=== PATIENT | female | born 1940 | race Caucasian/White ===

== ENCOUNTER → 2017-04-06 | Outpatient (REF) | payer BC ==
[2017-04-06 14:42] LABS: FERRITIN 17 NG/ML (8-252); IRON (FE) 43 UG/DL (50-170); PERCENT SATURATION 9.7 % (13.2-45.0); TOTAL IRON BINDING CAPACITY 443 UG/DL (250-450)
[2017-04-06 15:15] LABS: FOLATE 9.5 NG/ML; VITAMIN B12 LEVEL 470 PG/ML
== END ==
LOC: M LAB REF 13:28
DX: D64.9 Anemia, unspecified (principal)

== ENCOUNTER 2017-04-20 10:50 | Outpatient (CLI) | payer BC ==
[2017-04-20] MEDS: IRON SUCROSE 25 MG in NS 50 ML IV (12:49)
[2017-04-20] MEDS: IRON SUCROSE 475 MG in NS 250 ML IV (14:38)
== END 2017-04-20 19:00 | disposition home or self-care (01) ==
LOC: M INFU 10:50 → M PED 19:00 → M INFU 11:23 → M PED 11:23 → M OPCLIPED 10:50 → M PED 11:23 → M INFU 19:00
DX: D50.9 Iron deficiency anemia, unspecified (principal); Z88.0 Allergy status to penicillin; Z88.8 Allergy status to other drugs, medicaments and biological substances
CPT/HCPCS: J1756

== ENCOUNTER → 2017-09-06 | Outpatient (REF) | payer BC | LOC: M LAB REF 09-07 12:49 | DX: D50.9 Iron deficiency anemia, unspecified (principal) | CPT/HCPCS: 82270 ==

== ENCOUNTER 2017-10-27 11:51 | Inpatient (IN) | payer MEDICARE, BC ==
[2017-10-27 12:37] LABS: BASO % 0.4 % (0.0-1.0); EOS # 0.1 10^3/uL (0.0-0.50); EOS % 1.3 % (0.0-3.0); HEMATOCRIT 19.2 % (36.0-47.0); IMMATURE GRANULOCYTE % 0.6 % (0-3.0); LYMPH # 1.5 10^3/uL (1.5-4.5); LYMPH % 27.4 % (24.0-44.0); MEAN CORPUSCULAR HEMOGLOBIN 21.4 pg (27.0-33.0); MEAN CORPUSCULAR HGB CONC 26.6 g/dl (32.0-36.5); MEAN CORPUSCULAR VOLUME 80.7 fl (80.0-96.0); MONO # 0.4 10^3/uL (0.0-0.8); MONO % 6.7 % (0.0-5.0); NEUTROPHILS # 3.4 10^3/uL (1.8-7.7); NEUTROPHILS % 63.6 % (36.0-66.0); PLATELET COUNT, AUTOMATED 113 10^3/uL (150-450); RED BLOOD COUNT 2.38 10^6/uL (4.00-5.40); RED CELL DISTRIBUTION WIDTH 15.4 % (11.5-14.5); WHITE BLOOD COUNT 5.4 10^3/uL (4.0-10.0)
[2017-10-27 12:44] LABS: INR 1.11; PROTHROMBIN TIME 14.5 SECONDS (12.1-14.4)
[2017-10-27 12:45] LABS: HEMOGLOBIN 5.1 g/dl (12.0-15.5); PARTIAL THROMBOPLASTIN TIME 35.3 SECONDS (25.4-37.6)
[2017-10-27] MEDS: NS 1,000 ML IV ×2 (13:29→16:30)
[2017-10-27 13:41] LABS: ALBUMIN 2.7 GM/DL (3.2-5.2); ALBUMIN/GLOBULIN RATIO 0.66 (1.00-1.93); ALKALINE PHOSPHATASE 161 U/L (45-117); ALT/SGPT 16 U/L (12-78); ANION GAP 11 MEQ/L (8-16); AST/SGOT 39 U/L (7-37); BILIRUBIN,DIRECT 0.2 MG/DL (0.0-0.2); BILIRUBIN,TOTAL 0.7 MG/DL (0.2-1.0); BLOOD UREA NITROGEN 23 MG/DL (7-18); CALCIUM LEVEL 8.1 MG/DL (8.8-10.2); CARBON DIOXIDE LEVEL 24 MEQ/L (21-32); CHLORIDE LEVEL 110 MEQ/L (98-107); CREATININE FOR GFR 1.65 MG/DL (0.55-1.30); GLOMERULAR FILTRATION RATE 32.1 (>39); GLUCOSE, FASTING 115 MG/DL (70-100); LIPASE 201 U/L (73-393); POTASSIUM SERUM 4.3 MEQ/L (3.5-5.1); SODIUM LEVEL 145 MEQ/L (136-145); TOTAL PROTEIN 6.8 GM/DL (6.4-8.2)
[2017-10-27] MEDS: diphenhydrAMINE INJ 50MG/ML VIAL (J1200) IV (14:02)
[2017-10-27 14:03] LABS: IMMEDIATE SPIN CROSSMATCH 1 2
[2017-10-27] MEDS: PANTOPRAZOLE 40MG INJ (PROTONIX) (C9113) IV (14:30)
[2017-10-27] MEDS ORDERED: ACETAMINOPHEN 650 MG SUPP PR (16:00)
[2017-10-27] MEDS ORDERED: ONDANSETRON 4MG/2ML VIAL (J2405) IV (16:00)
[2017-10-27] MEDS ORDERED: diazePAM 5 MG TAB PO (16:15)
[2017-10-27] MEDS: PANTOPRAZOLE SODIUM 40 MG in D5W 50 ML IV ×3 (16:59→23:39)
[2017-10-27 18:34] LABS: BEDSIDE GLUCOSE 50 MG/DL (83-110)
[2017-10-27] MEDS: HumaLOG INSULIN (NovoLOG) PER UNIT SC ×2 (18:40→23:38)
[2017-10-27] MEDS ORDERED: DEXTROSE 50% 50 ML SYRINGE As Ordered (18:50)
[2017-10-27] MEDS: DEXTROSE 50% 50 ML SYRINGE IV (18:53)
[2017-10-27 19:34] LABS: BEDSIDE GLUCOSE 153 MG/DL (83-110)
[2017-10-27 20:20] LABS: BEDSIDE GLUCOSE 116 MG/DL (83-110)
[2017-10-27 20:24] LABS: HEMATOCRIT 21.9 % (36.0-47.0)
[2017-10-27 20:35] LABS: HEMOGLOBIN 6.3 g/dl (12.0-15.5)
[2017-10-27] MEDS: D5W 1,000 ML IV (20:40)
[2017-10-27] MEDS ORDERED: LEVEMIR (INSULIN DETEMIR) 1 UNITS/0.01ML SC ×2 (21:00)
[2017-10-27 21:12] LABS: IMMEDIATE SPIN CROSSMATCH 1 1
[2017-10-27] MEDS: CARVedilol 3.125 MG TAB PO (21:13)
[2017-10-27] MEDS ORDERED: INFLUENZA VIRUS VACCINE HIGH DOSE 0.5 ML SYRINGE (90662) IM (21:15)
[2017-10-27 22:56] LABS: IMMEDIATE SPIN CROSSMATCH 1 1
[2017-10-27 23:27] LABS: BEDSIDE GLUCOSE 73 MG/DL (83-110)
[2017-10-27] MEDS ORDERED: GLUCOSE 4 GM CHEW TABLET PO (23:45)
[2017-10-27] MEDS ORDERED: DEXTROSE 50% 50 ML SYRINGE IV (23:45)
[2017-10-27] MEDS ORDERED: GLUCAGON FOR INJ 1 MG VIAL (J1610) SC (23:45)
[2017-10-28 01:20] LABS: HEMATOCRIT 29.1 % (36.0-47.0)
[2017-10-28 01:21] LABS: HEMOGLOBIN 8.9 g/dl (12.0-15.5)
[2017-10-28 02:00] LABS: BEDSIDE GLUCOSE 76 MG/DL (83-110)
[2017-10-28 03:32] LABS: BEDSIDE GLUCOSE 89 MG/DL (83-110)
[2017-10-28 04:30] LABS: HEMATOCRIT 28.9 % (36.0-47.0); HEMOGLOBIN 8.9 g/dl (12.0-15.5); MEAN CORPUSCULAR HEMOGLOBIN 24.9 pg (27.0-33.0); MEAN CORPUSCULAR HGB CONC 30.8 g/dl (32.0-36.5); MEAN CORPUSCULAR VOLUME 80.7 fl (80.0-96.0); RED BLOOD COUNT 3.58 10^6/uL (4.00-5.40); RED CELL DISTRIBUTION WIDTH 15.6 % (11.5-14.5); WHITE BLOOD COUNT 5.7 10^3/uL (4.0-10.0)
[2017-10-28 04:44] LABS: ANION GAP 9 MEQ/L (8-16); BLOOD UREA NITROGEN 18 MG/DL (7-18); CALCIUM LEVEL 7.6 MG/DL (8.8-10.2); CARBON DIOXIDE LEVEL 24 MEQ/L (21-32); CHLORIDE LEVEL 110 MEQ/L (98-107); CREATININE FOR GFR 1.44 MG/DL (0.55-1.30); GLOMERULAR FILTRATION RATE 37.6 (>39); GLUCOSE, FASTING 86 MG/DL (70-100); MAGNESIUM LEVEL 2.2 MG/DL (1.8-2.4); POTASSIUM SERUM 3.8 MEQ/L (3.5-5.1); SODIUM LEVEL 143 MEQ/L (136-145)
[2017-10-28] MEDS: LEVOTHYROXINE 25MCG TABLET (0.025MG) PO (05:07)
[2017-10-28] MEDS: HumaLOG INSULIN (NovoLOG) PER UNIT SC ×4 (05:08→23:50)
[2017-10-28] MEDS: ACETAMINOPHEN TAB 650MG DOSE (2X325MG) PO (05:08)
[2017-10-28] MEDS: PANTOPRAZOLE SODIUM 40 MG in D5W 50 ML IV ×4 (05:08→23:16)
[2017-10-28 05:11] LABS: PLATELET COUNT, AUTOMATED 77 10^3/uL (150-450)
[2017-10-28 05:12] LABS: IMMATURE PLATELET FRACTION % 4.8 % (0.0-9.6)
[2017-10-28] MEDS ORDERED: LIDOCAINE 2% INJ 100 MG/5 ML SDV (FOR ANES.) As Ordered (07:46)
[2017-10-28] MEDS ORDERED: PROPOFOL 200 MG/20 ML VIAL As Ordered ×2 (07:46→07:47)
[2017-10-28 07:51] LABS: BEDSIDE GLUCOSE 128 MG/DL (83-110)
[2017-10-28] MEDS ORDERED: ACETAMINOPHEN 500 MG TAB PO (09:00)
[2017-10-28] MEDS: GOLYTELY SOLN 4000 ML BTL PO (10:09)
[2017-10-28] MEDS: VITAMIN D 1,000 INTERNATIONAL UNITS TABLET PO (10:09)
[2017-10-28] MEDS: CARVedilol 3.125 MG TAB PO ×2 (10:10→20:36)
[2017-10-28] MEDS: glipiZIDE (GLUCOTROL) 5 MG TAB PO (10:11)
[2017-10-28] MEDS: ROSUVASTATIN 10 MG TAB (CRESTOR) PO (10:11)
[2017-10-28] MEDS: ESCITALOPRAM OXALATE 10 MG TAB (LEXAPRO) PO (10:11)
[2017-10-28 11:58] LABS: BEDSIDE GLUCOSE 216 MG/DL (83-110)
[2017-10-28] MEDS: NS 1,000 ML IV (12:00)
[2017-10-28] MEDS: D5W 1,000 ML IV (12:15)
[2017-10-28 12:23] LABS: HEMATOCRIT 30.5 % (36.0-47.0); HEMOGLOBIN 9.4 g/dl (12.0-15.5)
[2017-10-28 18:02] LABS: BEDSIDE GLUCOSE 219 MG/DL (83-110)
[2017-10-28 18:02] LABS: HEMATOCRIT 30.7 % (36.0-47.0); HEMOGLOBIN 9.3 g/dl (12.0-15.5)
[2017-10-28 23:45] LABS: BEDSIDE GLUCOSE 232 MG/DL (83-110)
[2017-10-29 00:43] LABS: HEMATOCRIT 32.2 % (36.0-47.0); HEMOGLOBIN 9.6 g/dl (12.0-15.5)
[2017-10-29] MEDS: D5W 1,000 ML IV (04:22)
[2017-10-29] MEDS: PANTOPRAZOLE SODIUM 40 MG in D5W 50 ML IV ×3 (04:22→08:30)
[2017-10-29 05:38] LABS: HEMATOCRIT 28.1 % (36.0-47.0); HEMOGLOBIN 8.5 g/dl (12.0-15.5); MEAN CORPUSCULAR HEMOGLOBIN 24.3 pg (27.0-33.0); MEAN CORPUSCULAR HGB CONC 30.2 g/dl (32.0-36.5); MEAN CORPUSCULAR VOLUME 80.3 fl (80.0-96.0); RED CELL DISTRIBUTION WIDTH 16.4 % (11.5-14.5); WHITE BLOOD COUNT 5.4 10^3/uL (4.0-10.0)
[2017-10-29 05:40] LABS: PLATELET COUNT, AUTOMATED 88 10^3/uL (150-450)
[2017-10-29 05:41] LABS: IMMATURE PLATELET FRACTION % 6.2 % (0.0-9.6)
[2017-10-29] MEDS: HumaLOG INSULIN (NovoLOG) PER UNIT SC ×3 (06:00→20:30)
[2017-10-29] MEDS: LEVOTHYROXINE 25MCG TABLET (0.025MG) PO (06:00)
[2017-10-29 06:18] LABS: ALBUMIN 2.6 GM/DL (3.2-5.2); ALBUMIN/GLOBULIN RATIO 0.68 (1.00-1.93); ALKALINE PHOSPHATASE 140 U/L (45-117); ALT/SGPT 14 U/L (12-78); ANION GAP 6 MEQ/L (8-16); AST/SGOT 37 U/L (7-37); BLOOD UREA NITROGEN 11 MG/DL (7-18); CALCIUM LEVEL 7.8 MG/DL (8.8-10.2); CARBON DIOXIDE LEVEL 28 MEQ/L (21-32); CHLORIDE LEVEL 108 MEQ/L (98-107); CREATININE FOR GFR 1.44 MG/DL (0.55-1.30); GLOMERULAR FILTRATION RATE 37.6 (>39); GLUCOSE, FASTING 129 MG/DL (70-100); MAGNESIUM LEVEL 1.9 MG/DL (1.8-2.4); POTASSIUM SERUM 3.9 MEQ/L (3.5-5.1); SODIUM LEVEL 142 MEQ/L (136-145); TOTAL PROTEIN 6.4 GM/DL (6.4-8.2)
[2017-10-29] MEDS: ROSUVASTATIN 10 MG TAB (CRESTOR) PO (08:04)
[2017-10-29] MEDS: VITAMIN D 1,000 INTERNATIONAL UNITS TABLET PO (08:04)
[2017-10-29] MEDS: ESCITALOPRAM OXALATE 10 MG TAB (LEXAPRO) PO (08:04)
[2017-10-29] MEDS: CARVedilol 3.125 MG TAB PO ×2 (08:20→20:29)
[2017-10-29] MEDS ORDERED: PROPOFOL 200 MG/20 ML VIAL As Ordered (11:57)
[2017-10-29] MEDS ORDERED: ONDANSETRON 4MG/2ML VIAL (J2405) IV (12:45)
[2017-10-29] MEDS: LR 1,000 ML IV (12:45)
[2017-10-29 13:22] LABS: HEMOGLOBIN 8.9 g/dl (12.0-15.5)
[2017-10-29 14:25] LABS: BEDSIDE GLUCOSE 191 MG/DL (83-110)
[2017-10-29 18:46] LABS: BEDSIDE GLUCOSE 97 MG/DL (83-110)
[2017-10-30] LABS: BEDSIDE GLUCOSE 165 MG/DL (83-110)
[2017-10-30] MEDS: HumaLOG INSULIN (NovoLOG) PER UNIT SC ×3 (00:15→13:03)
[2017-10-30] MEDS: ACETAMINOPHEN TAB 650MG DOSE (2X325MG) PO (00:15)
[2017-10-30] MEDS: LEVOTHYROXINE 25MCG TABLET (0.025MG) PO (05:20)
[2017-10-30 05:24] LABS: BEDSIDE GLUCOSE 93 MG/DL (83-110)
[2017-10-30 06:59] LABS: HEMATOCRIT 28.1 % (36.0-47.0); HEMOGLOBIN 8.2 g/dl (12.0-15.5); MEAN CORPUSCULAR HEMOGLOBIN 24.3 pg (27.0-33.0); MEAN CORPUSCULAR HGB CONC 29.2 g/dl (32.0-36.5); MEAN CORPUSCULAR VOLUME 83.1 fl (80.0-96.0); RED BLOOD COUNT 3.38 10^6/uL (4.00-5.40); RED CELL DISTRIBUTION WIDTH 17.1 % (11.5-14.5); WHITE BLOOD COUNT 4.8 10^3/uL (4.0-10.0)
[2017-10-30 07:05] LABS: PLATELET COUNT, AUTOMATED 76 10^3/uL (150-450)
[2017-10-30 07:06] LABS: IMMATURE PLATELET FRACTION % 5.6 % (0.0-9.6)
[2017-10-30 07:26] LABS: ALBUMIN 2.6 GM/DL (3.2-5.2); ALBUMIN/GLOBULIN RATIO 0.72 (1.00-1.93); ALKALINE PHOSPHATASE 144 U/L (45-117); ALT/SGPT 14 U/L (12-78); ANION GAP 7 MEQ/L (8-16); AST/SGOT 34 U/L (7-37); BILIRUBIN,TOTAL 1.6 MG/DL (0.2-1.0); BLOOD UREA NITROGEN 12 MG/DL (7-18); CALCIUM LEVEL 8.2 MG/DL (8.8-10.2); CARBON DIOXIDE LEVEL 27 MEQ/L (21-32); CHLORIDE LEVEL 111 MEQ/L (98-107); CREATININE FOR GFR 1.49 MG/DL (0.55-1.30); GLOMERULAR FILTRATION RATE 36.1 (>39); GLUCOSE, FASTING 106 MG/DL (70-100); MAGNESIUM LEVEL 2.3 MG/DL (1.8-2.4); SODIUM LEVEL 145 MEQ/L (136-145); TOTAL PROTEIN 6.2 GM/DL (6.4-8.2)
[2017-10-30] MEDS: CARVedilol 3.125 MG TAB PO (09:06)
[2017-10-30] MEDS: VITAMIN D 1,000 INTERNATIONAL UNITS TABLET PO (09:07)
[2017-10-30] MEDS: ROSUVASTATIN 10 MG TAB (CRESTOR) PO (09:07)
[2017-10-30] MEDS: ESCITALOPRAM OXALATE 10 MG TAB (LEXAPRO) PO (09:07)
[2017-10-30 12:19] LABS: HEMATOCRIT 29.3 % (36.0-47.0); HEMOGLOBIN 8.5 g/dl (12.0-15.5)
[2017-10-30 12:55] LABS: HEPATITIS C VIRUS ABY INDEX 0.1 INDEX (<0.8)
[2017-10-30 12:55] LABS: HEPATITIS A ANTIBODY IGM NEGATIVE (NEGATIVE); HEPATITIS B CORE ANTIBODY IGM NEGATIVE (NEGATIVE); HEPATITIS B SURFACE ANTIGEN NEGATIVE (NEGATIVE)
[2017-11-01 00:07] LABS: ANTINUCLEAR ANTIBODIES DIRECT Negative (Negative)
== END 2017-10-30 17:00 | disposition home or self-care (01) | DRG 812 ==
LOC: M ED 11:51 → M ED INP 16:08 → M MS5PR 10-28 14:53 → M ICU 20:15
PROC: 0DB98ZX Excision of Duodenum, Via Natural or Artificial Opening Endoscopic, Diagnostic (ICD-10-PCS; principal; 2017-10-28 08:00)
PROC: 0DBQ8ZX Excision of Anus, Via Natural or Artificial Opening Endoscopic, Diagnostic (ICD-10-PCS; 2017-10-28 08:39)
PROC: 0DBH8ZX Excision of Cecum, Via Natural or Artificial Opening Endoscopic, Diagnostic (ICD-10-PCS; 2017-10-28 08:39)
PROC: 0W3P8ZZ Control Bleeding in Gastrointestinal Tract, Via Natural or Artificial Opening Endoscopic (ICD-10-PCS; 2017-10-28 08:39)
PROC: 30233N1 Transfusion of Nonautologous Red Blood Cells into Peripheral Vein, Percutaneous Approach (ICD-10-PCS; 2017-10-28 08:39)
DX: D64.9 Anemia, unspecified (principal); I50.32 Chronic diastolic (congestive) heart failure; I13.0 Hypertensive heart and chronic kidney disease with heart failure and stage 1 through stage 4 chronic kidney disease, or unspecified chronic kidney disease; K21.9 Gastro-esophageal reflux disease without esophagitis; E11.22 Type 2 diabetes mellitus with diabetic chronic kidney disease; F41.9 Anxiety disorder, unspecified; F32.9 Major depressive disorder, single episode, unspecified; K64.0 First degree hemorrhoids; K57.30 Diverticulosis of large intestine without perforation or abscess without bleeding; K62.0 Anal polyp; D69.6 Thrombocytopenia, unspecified; R16.2 Hepatomegaly with splenomegaly, not elsewhere classified; K74.60 Unspecified cirrhosis of liver; D12.0 Benign neoplasm of cecum; E03.9 Hypothyroidism, unspecified; Z79.4 Long term (current) use of insulin; Z88.0 Allergy status to penicillin; Z88.1 Allergy status to other antibiotic agents; Z79.899 Other long term (current) drug therapy

== ENCOUNTER → 2017-10-27 | Outpatient (REF) | payer BC, MEDICARE ==
[2017-10-27 14:42] LABS: FERRITIN 8 NG/ML (8-252); IRON (FE) 209 UG/DL (50-170); PERCENT SATURATION 43.5 % (13.2-45.0); TOTAL IRON BINDING CAPACITY 480 UG/DL (250-450)
== END ==
LOC: M LAB REF 13:52
DX: D50.9 Iron deficiency anemia, unspecified (principal)

== ENCOUNTER 2017-11-16 13:30 | Outpatient (CLI) | payer MEDICARE, BC ==
[2017-11-16] MEDS: ACETAMINOPHEN TAB 650MG DOSE (2X325MG) PO ×2 (14:14)
[2017-11-16] MEDS: diphenhydrAMINE 25 MG CAP PO ×2 (14:16)
== END 2017-11-16 18:35 | disposition home or self-care (01) ==
LOC: M INFU 13:30
DX: D61.818 Other pancytopenia (principal)
CPT/HCPCS: 36430

== ENCOUNTER 2017-11-22 16:57 | Outpatient (CLI) | payer MEDICARE, BC ==
[2017-11-22] MEDS: diphenhydrAMINE 50 MG CAP PO (19:01)
[2017-11-22] MEDS: ACETAMINOPHEN TAB 650MG DOSE (2X325MG) PO (19:01)
[2017-11-22] MEDS: CARVedilol 3.125 MG TAB PO (21:41)
[2017-11-23 03:28] LABS: BEDSIDE GLUCOSE 107 MG/DL (83-110)
== END 2017-11-23 00:40 | disposition home or self-care (01) ==
LOC: M OPCLI5PR 11-23 00:40 → M MS5PR 17:34
DX: D61.818 Other pancytopenia (principal); D69.6 Thrombocytopenia, unspecified; R16.1 Splenomegaly, not elsewhere classified
CPT/HCPCS: 36430

== ENCOUNTER → 2017-12-04 | Outpatient (REF) | payer MEDICARE, BC ==
[2017-12-05 12:13] LABS: IMMEDIATE SPIN CROSSMATCH 1 1
== END ==
LOC: M LAB REF 17:21
DX: D64.9 Anemia, unspecified (principal)
CPT/HCPCS: 86900

== ENCOUNTER 2017-12-05 11:37 | Outpatient (CLI) | payer MEDICARE, BC ==
[2017-12-05] MEDS: diphenhydrAMINE 25 MG CAP PO (12:00)
== END 2017-12-05 14:35 | disposition home or self-care (01) ==
LOC: M INFU 11:37
DX: D64.9 Anemia, unspecified (principal); N18.3 Chronic kidney disease, stage 3 (moderate); E11.22 Type 2 diabetes mellitus with diabetic chronic kidney disease; I12.9 Hypertensive chronic kidney disease with stage 1 through stage 4 chronic kidney disease, or unspecified chronic kidney disease; E83.51 Hypocalcemia; Z79.4 Long term (current) use of insulin; Z79.899 Other long term (current) drug therapy; Z88.0 Allergy status to penicillin; Z88.2 Allergy status to sulfonamides; Z88.8 Allergy status to other drugs, medicaments and biological substances
CPT/HCPCS: 36430

== ENCOUNTER 2017-12-14 12:15 | Outpatient (CLI) | payer MEDICARE, BC ==
[2017-12-14] MEDS: diphenhydrAMINE 25 MG CAP PO (07:00)
[2017-12-14] MEDS: ACETAMINOPHEN TAB 650MG DOSE (2X325MG) PO (13:37)
[2017-12-14 16:15] LABS: IMMEDIATE SPIN CROSSMATCH 1 2
== END 2017-12-14 18:25 | disposition home or self-care (01) ==
LOC: M INFU 12:15
DX: D46.4 Refractory anemia, unspecified (principal); Z88.0 Allergy status to penicillin; Z88.8 Allergy status to other drugs, medicaments and biological substances
CPT/HCPCS: 36430

== ENCOUNTER 2018-01-05 12:09 | Observation (INO) | payer MEDICARE ==
[2018-01-05] MEDS ORDERED: DEXTROSE 50% 50 ML SYRINGE As Ordered (14:02)
[2018-01-05 14:03] LABS: BEDSIDE GLUCOSE 26 MG/DL (83-110)
[2018-01-05 14:05] LABS: BASO % 0.1 % (0.0-1.0); EOS # 0.1 10^3/uL (0.0-0.50); EOS % 0.9 % (0.0-3.0); HEMATOCRIT 21.5 % (36.0-47.0); IMMATURE GRANULOCYTE % 0.9 % (0-3.0); LYMPH # 1.8 10^3/uL (1.5-4.5); LYMPH % 16.3 % (24.0-44.0); MEAN CORPUSCULAR HEMOGLOBIN 25.1 pg (27.0-33.0); MEAN CORPUSCULAR HGB CONC 28.8 g/dl (32.0-36.5); MONO # 0.8 10^3/uL (0.0-0.8); MONO % 7.3 % (0.0-5.0); NEUTROPHILS # 8.3 10^3/uL (1.8-7.7); NEUTROPHILS % 74.5 % (36.0-66.0); PLATELET COUNT, AUTOMATED 119 10^3/uL (150-450); RED BLOOD COUNT 2.47 10^6/uL (4.00-5.40); RED CELL DISTRIBUTION WIDTH 17.8 % (11.5-14.5); WHITE BLOOD COUNT 11.1 10^3/uL (4.0-10.0)
[2018-01-05 14:09] LABS: HEMOGLOBIN 6.2 g/dl (12.0-15.5)
[2018-01-05] MEDS: D10W 1,000 ML IV (14:13)
[2018-01-05] MEDS: DEXTROSE 50% 50 ML SYRINGE IV (14:13)
[2018-01-05 14:17] LABS: INR 1.04; PROTHROMBIN TIME 13.7 SECONDS (12.1-14.4)
[2018-01-05 14:18] LABS: PARTIAL THROMBOPLASTIN TIME 29.5 SECONDS (25.4-37.6)
[2018-01-05 14:40] LABS: ALBUMIN 2.6 GM/DL (3.2-5.2); ALBUMIN/GLOBULIN RATIO 0.87 (1.00-1.93); ALKALINE PHOSPHATASE 160 U/L (45-117); ALT/SGPT 27 U/L (12-78); ANION GAP 9 MEQ/L (8-16); AST/SGOT 28 U/L (7-37); BILIRUBIN,DIRECT 0.2 MG/DL (0.0-0.2); BILIRUBIN,TOTAL 0.6 MG/DL (0.2-1.0); BLOOD UREA NITROGEN 29 MG/DL (7-18); CALCIUM LEVEL 8.2 MG/DL (8.8-10.2); CARBON DIOXIDE LEVEL 26 MEQ/L (21-32); CHLORIDE LEVEL 114 MEQ/L (98-107); CREATININE FOR GFR 1.35 MG/DL (0.55-1.30); GLOMERULAR FILTRATION RATE 40.4 (>39); GLUCOSE, FASTING 38 MG/DL (70-100); LIPASE 352 U/L (73-393); POTASSIUM SERUM 3.3 MEQ/L (3.5-5.1); SODIUM LEVEL 149 MEQ/L (136-145); TOTAL PROTEIN 5.6 GM/DL (6.4-8.2)
[2018-01-05] MEDS ORDERED: diazePAM 5 MG TAB PO (14:45)
[2018-01-05 15:01] LABS: BEDSIDE GLUCOSE 204 MG/DL (83-110)
[2018-01-05 15:02] LABS: BEDSIDE GLUCOSE 128 MG/DL (83-110)
[2018-01-05 15:36] LABS: IMMEDIATE SPIN CROSSMATCH 1 1
[2018-01-05 16:17] LABS: BEDSIDE GLUCOSE 74 MG/DL (83-110)
[2018-01-05] MEDS ORDERED: DEXTROSE 50% 50 ML SYRINGE IV (17:30)
[2018-01-05] MEDS ORDERED: GLUCAGON FOR INJ 1 MG VIAL (J1610) SC (17:30)
[2018-01-05] MEDS ORDERED: GLUCOSE 4 GM CHEW TABLET PO (17:30)
[2018-01-05 17:38] LABS: BEDSIDE GLUCOSE 155 MG/DL (83-110)
[2018-01-05] MEDS: glipiZIDE (GLUCOTROL) 5 MG TAB PO (18:00)
[2018-01-05] MEDS: ACETAMINOPHEN 500 MG TAB PO (21:20)
[2018-01-05] MEDS: CARVedilol 3.125 MG TAB PO (21:20)
[2018-01-05] MEDS: FERROUS GLUCONATE 324 MG TAB PO (21:20)
[2018-01-05] MEDS: TRIAMCINOLONE ACET 0.1% CREAM 80 GM TOP (21:21)
[2018-01-05 21:23] LABS: BEDSIDE GLUCOSE 90 MG/DL (83-110)
[2018-01-05] MEDS: LEVEMIR (INSULIN DETEMIR) 1 UNITS/0.01ML SC (21:30)
[2018-01-05] MEDS: NovoLOG MIX 70/30 PER UNIT SC (21:31)
[2018-01-06 00:13] LABS: BEDSIDE GLUCOSE 120 MG/DL (83-110)
[2018-01-06] MEDS: NovoLOG MIX 70/30 PER UNIT SC ×2 (06:00→13:20)
[2018-01-06 06:48] LABS: ALBUMIN 2.1 GM/DL (3.2-5.2); ALBUMIN/GLOBULIN RATIO 0.75 (1.00-1.93); ALKALINE PHOSPHATASE 131 U/L (45-117); ALT/SGPT 19 U/L (12-78); ANION GAP 9 MEQ/L (8-16); AST/SGOT 24 U/L (7-37); BILIRUBIN,TOTAL 0.6 MG/DL (0.2-1.0); BLOOD UREA NITROGEN 27 MG/DL (7-18); CALCIUM LEVEL 7.7 MG/DL (8.8-10.2); CARBON DIOXIDE LEVEL 25 MEQ/L (21-32); CHLORIDE LEVEL 113 MEQ/L (98-107); CREATININE FOR GFR 1.34 MG/DL (0.55-1.30); GLOMERULAR FILTRATION RATE 40.7 (>39); GLUCOSE, FASTING 95 MG/DL (70-100); SODIUM LEVEL 147 MEQ/L (136-145); TOTAL PROTEIN 4.9 GM/DL (6.4-8.2)
[2018-01-06] MEDS: LEVOTHYROXINE 25MCG TABLET (0.025MG) PO (07:02)
[2018-01-06] MEDS: LEVEMIR (INSULIN DETEMIR) 1 UNITS/0.01ML SC (08:30)
[2018-01-06] MEDS: CARVedilol 3.125 MG TAB PO ×2 (08:30→20:24)
[2018-01-06] MEDS: VITAMIN D 1,000 INTERNATIONAL UNITS TABLET PO (08:31)
[2018-01-06] MEDS: FERROUS GLUCONATE 324 MG TAB PO ×2 (08:31→20:24)
[2018-01-06] MEDS: ESCITALOPRAM OXALATE 10 MG TAB (LEXAPRO) PO (08:31)
[2018-01-06] MEDS: TRIAMCINOLONE ACET 0.1% CREAM 80 GM TOP ×2 (08:32→20:24)
[2018-01-06] MEDS: D10W 1,000 ML IV ×2 (09:13→13:20)
[2018-01-06 09:23] LABS: FERRITIN 47 NG/ML (8-252); IRON (FE) 23 UG/DL (50-170); PERCENT SATURATION 5.9 % (13.2-45.0); TOTAL IRON BINDING CAPACITY 393 UG/DL (250-450)
[2018-01-06 09:26] LABS: HEMATOCRIT 24.5 % (36.0-47.0); HEMOGLOBIN 7.5 g/dl (12.0-15.5); MEAN CORPUSCULAR HEMOGLOBIN 26.4 pg (27.0-33.0); MEAN CORPUSCULAR HGB CONC 30.6 g/dl (32.0-36.5); MEAN CORPUSCULAR VOLUME 86.3 fl (80.0-96.0); RED BLOOD COUNT 2.84 10^6/uL (4.00-5.40); RED CELL DISTRIBUTION WIDTH 18.3 % (11.5-14.5); RETIC HEMOGLOBIN EQUIVALENT 25.5 pg (24-36); RETICULOCYTE # 133.8 10^9/L (17-77); RETICULOCYTE % 4.7 % (0.5-1.5); WHITE BLOOD COUNT 6.8 10^3/uL (4.0-10.0)
[2018-01-06 10:09] LABS: PLATELET COUNT, AUTOMATED 89 10^3/uL (150-450)
[2018-01-06 10:10] LABS: IMMATURE PLATELET FRACTION % 2.2 % (0.0-9.6)
[2018-01-06 11:41] LABS: BEDSIDE GLUCOSE 167 MG/DL (83-110)
[2018-01-06 16:37] LABS: HEMATOCRIT 25.7 % (36.0-47.0); HEMOGLOBIN 7.6 g/dl (12.0-15.5); MEAN CORPUSCULAR HEMOGLOBIN 25.9 pg (27.0-33.0); MEAN CORPUSCULAR HGB CONC 29.6 g/dl (32.0-36.5); MEAN CORPUSCULAR VOLUME 87.4 fl (80.0-96.0); RED BLOOD COUNT 2.94 10^6/uL (4.00-5.40); RED CELL DISTRIBUTION WIDTH 17.5 % (11.5-14.5); WHITE BLOOD COUNT 6.4 10^3/uL (4.0-10.0)
[2018-01-06 16:42] LABS: PLATELET COUNT, AUTOMATED 73 10^3/uL (150-450)
[2018-01-06 17:11] LABS: BEDSIDE GLUCOSE 76 MG/DL (83-110)
[2018-01-06 19:59] LABS: BEDSIDE GLUCOSE 80 MG/DL (83-110)
[2018-01-06 20:32] LABS: IMMEDIATE SPIN CROSSMATCH 1 2
[2018-01-07 00:12] LABS: HEMOGLOBIN 8.5 g/dl (12.0-15.5); MEAN CORPUSCULAR HEMOGLOBIN 26.4 pg (27.0-33.0); MEAN CORPUSCULAR HGB CONC 30.4 g/dl (32.0-36.5); RED BLOOD COUNT 3.22 10^6/uL (4.00-5.40); RED CELL DISTRIBUTION WIDTH 17.3 % (11.5-14.5); WHITE BLOOD COUNT 6.5 10^3/uL (4.0-10.0)
[2018-01-07 00:13] LABS: PLATELET COUNT, AUTOMATED 80 10^3/uL (150-450)
[2018-01-07 00:19] LABS: BEDSIDE GLUCOSE 88 MG/DL (83-110)
[2018-01-07 00:37] LABS: BEDSIDE GLUCOSE 110 MG/DL (83-110)
[2018-01-07] MEDS: LEVOTHYROXINE 25MCG TABLET (0.025MG) PO (05:56)
[2018-01-07 06:22] LABS: BEDSIDE GLUCOSE 94 MG/DL (83-110)
[2018-01-07 08:06] LABS: HAPTOGLOBIN 137 mg/dL (34-200)
[2018-01-07] MEDS: ESCITALOPRAM OXALATE 10 MG TAB (LEXAPRO) PO (08:18)
[2018-01-07] MEDS: VITAMIN D 1,000 INTERNATIONAL UNITS TABLET PO (08:18)
[2018-01-07] MEDS: FERROUS GLUCONATE 324 MG TAB PO (08:19)
[2018-01-07] MEDS: CARVedilol 3.125 MG TAB PO (08:19)
[2018-01-07] MEDS: TRIAMCINOLONE ACET 0.1% CREAM 80 GM TOP (08:19)
[2018-01-07] MEDS: LEVEMIR (INSULIN DETEMIR) 1 UNITS/0.01ML SC (08:20)
[2018-01-07 08:26] LABS: ANION GAP 6 MEQ/L (8-16); BLOOD UREA NITROGEN 21 MG/DL (7-18); CALCIUM LEVEL 8.1 MG/DL (8.8-10.2); CARBON DIOXIDE LEVEL 28 MEQ/L (21-32); CHLORIDE LEVEL 110 MEQ/L (98-107); CREATININE FOR GFR 1.31 MG/DL (0.55-1.30); GLOMERULAR FILTRATION RATE 41.8 (>39); GLUCOSE, FASTING 115 MG/DL (70-100); POTASSIUM SERUM 4.1 MEQ/L (3.5-5.1); SODIUM LEVEL 144 MEQ/L (136-145)
[2018-01-07 11:46] LABS: BEDSIDE GLUCOSE 174 MG/DL (83-110)
[2018-01-07] MEDS: FUROSEMIDE 40 MG/4 ML VIAL (J1940) IV (12:17)
[2018-01-08 11:56] LABS: VITAMIN B12 LEVEL 624 PG/ML (247-911)
[2018-01-08 11:59] LABS: FOLATE 14.3 NG/ML (>5.4)
== END 2018-01-07 15:15 | disposition home or self-care (01) ==
LOC: M ED 12:09 → M ED INP 14:06 → M MS5PR 17:45
DX: D50.0 Iron deficiency anemia secondary to blood loss (chronic) (principal); D63.8 Anemia in other chronic diseases classified elsewhere; I12.9 Hypertensive chronic kidney disease with stage 1 through stage 4 chronic kidney disease, or unspecified chronic kidney disease; N18.3 Chronic kidney disease, stage 3 (moderate); E11.9 Type 2 diabetes mellitus without complications; I50.30 Unspecified diastolic (congestive) heart failure; D35.00 Benign neoplasm of unspecified adrenal gland; K21.9 Gastro-esophageal reflux disease without esophagitis; Z79.4 Long term (current) use of insulin; Z79.899 Other long term (current) drug therapy; Z88.0 Allergy status to penicillin; Z88.2 Allergy status to sulfonamides; F41.9 Anxiety disorder, unspecified; E03.9 Hypothyroidism, unspecified
CPT/HCPCS: J1940

== ENCOUNTER → 2018-01-10 | Outpatient (CLI) | payer MEDICARE | LOC: M RAD 10:57 | DX: R16.1 Splenomegaly, not elsewhere classified (principal); K86.2 Cyst of pancreas; E27.9 Disorder of adrenal gland, unspecified | CPT/HCPCS: 74181 ==

== ENCOUNTER → 2018-03-15 | Outpatient (CLI) | payer MEDICARE ==
[~2018-03-15] MED LIST: CALC600T60 PO; CORE3.12 PO; CRES5TAB PO; DECA4TAB PO; DEXA4TA PO; ESOM1CAP5 PO; FENO145T13 PO; FERR32TA PO; FLUTISP; GLIP5TAB8 PO; HYDR-643 PO; INSUDET SC; LEVE1INJ5 SC; LEXA1TAB PO; NEXI1CAP4 PO; NOVOINJ2 SC; PYRI25TA4 PO; SYNT25TA PO; TRIA1CR80 TOP; TYLE500T78 PO; VALI5TAB PO; VITA-182 PO; VITA500T PO; VITATAB11 PO
[2018-03-15 11:23] LABS: BASO % 0.5 % (0.0-1.0); EOS # 0.1 10^3/uL (0.0-0.50); EOS % 1.4 % (0.0-3.0); HEMATOCRIT 32.1 % (36.0-47.0); HEMOGLOBIN 9.5 g/dl (12.0-15.5); LYMPH # 1.1 10^3/uL (1.5-4.5); LYMPH % 19.3 % (24.0-44.0); MEAN CORPUSCULAR HGB CONC 29.6 g/dl (32.0-36.5); MEAN CORPUSCULAR VOLUME 84.5 fl (80.0-96.0); MONO # 0.4 10^3/uL (0.0-0.8); MONO % 6.8 % (0.0-5.0); NEUTROPHILS % 71.6 % (36.0-66.0); WHITE BLOOD COUNT 5.6 10^3/uL (4.0-10.0)
[2018-03-15 11:59] LABS: CREATININE FOR GFR 1.2 MG/DL (0.55-1.30); GLOMERULAR FILTRATION RATE 46.3 (>39); PERCENT SATURATION 5.2 % (13.2-45.0)
[2018-03-15 12:06] LABS: PLATELET COUNT, AUTOMATED 67 10^3/uL (150-450)
== END ==
LOC: M LAB 10:33
PROVIDERS: ATTEND Internal Medicine Gastroenterology
DX: K62.5 Hemorrhage of anus and rectum (principal); D50.9 Iron deficiency anemia, unspecified

== ENCOUNTER 2018-03-20 06:34 | Day surgery (SDC) | payer MEDICARE ==
[~2018-03-20] VITALS: Ht 162.6 cm; Wt 64.0 kg
[~2018-03-20 06:34] MED LIST changes: +NS 1,000 ML IV ONE
[2018-03-20] MEDS ORDERED: PROPOFOL 500 MG/50 ML VIAL As Ordered ONE (07:06)
[2018-03-20] MEDS ORDERED: LIDOCAINE 2% INJ 100 MG/5 ML SDV (FOR ANES.) As Ordered ONE (07:07)
[2018-03-20] MEDS ORDERED: PROPOFOL 200 MG/20 ML VIAL As Ordered ONE ×2 (09:14→09:37)
--- NOTE | 2018-03-20 09:52 | ROOR ---
Patient Name: Indigo Herr Procedure Date: 03/20/2018 8:00 AM Date of : 1940 Age: 77 Room: [facility] Gender: Female Note Status: Finalized Procedure: Small bowel enteroscopy Indications: Hematochezia Providers: Edgar Guillen MD Referring MD: LUBNA MONTES DO Requesting Provider: Medicines: Monitored Anesthesia Care Complications: No immediate complications. Procedure: Pre-Anesthesia Assessment: - Prior to the procedure, a History and Physical was performed, and patient medications and allergies were reviewed. The patient is competent. The risks and benefits of the procedure and the sedation options and risks were discussed with the patient. All questions were answered and informed consent was obtained. Patient identification and proposed procedure were verified by the physician, the nurse and the anesthesiologist in the procedure room. Mental Status Examination: alert and oriented. Airway Examination: normal oropharyngeal airway and neck mobility. Respiratory Examination: clear to auscultation. CV Examination: normal. Prophylactic Antibiotics: The patient does not require prophylactic antibiotics. Prior Anticoagulants: The patient has taken no previous anticoagulant or antiplatelet agents. ASA Grade Assessment: III - A patient with severe systemic disease. After reviewing the risks and benefits, the patient was deemed in satisfactory condition to undergo the procedure. The anesthesia plan was to use monitored anesthesia care (MAC). Immediately prior to administration of medications, the patient was re-assessed for adequacy to receive sedatives. The heart rate, respiratory rate, oxygen saturations, blood pressure, adequacy of pulmonary ventilation, and response to care were monitored throughout the procedure. The physical status of the patient was re-assessed after the procedure. The upper GI endoscopy was accomplished without difficulty. The patient tolerated the procedure well. The Colonoscope was introduced through the mouth, and advanced to the proximal jejunum. Findings: LA Grade A (one or more mucosal breaks less than 5 mm, not extending between tops of 2 mucosal folds) esophagitis with no bleeding was found in the distal esophagus. Diffuse moderate inflammation characterized by erosions, erythema and granularity was found in the gastric antrum. The duodenal bulb, second portion of the duodenum, third portion of the duodenum and fourth portion of the duodenum were normal. A 10 mm sessile polyp with no bleeding was found in the jejunum. The polyp was removed with a cold biopsy forceps. The polyp was removed with a cold snare. Resection and retrieval were complete. Verification of patient identification for the specimen was done by the physician and nurse using the patient's name, date and medical record number. Estimated blood loss was minimal. The distal extent of the Jejunum examined was tattooed with an injection of 2 mL of Yojana ink. Impression: - LA Grade A reflux esophagitis. - Gastritis. - Normal duodenal bulb, second portion of the duodenum, third portion of the duodenum and fourth portion of the duodenum. - Jejunal polyp(s). Resected and retrieved. - The distal extent of the Jejunum examined was tattooed. Recommendation: - Patient has a contact number available for emergencies. The signs and symptoms of potential delayed complications were discussed with the patient. Return to normal activities tomorrow. Written discharge instructions were provided to the patient. - Full liquid diet today, then advance as tolerated to resume regular diet. - Continue present medications. - Await pathology results. - Perform an upper device-assisted enteroscopy after studies are complete. - Return to GI clinic 1 - 2 weeks. Please call GI clinic @ [phone] for apppointment date and time. - Return to primary care physician. Edgar Guillen MD Edgar Guillen MD 03/20/2018 9:51:52 AM This report has been signed electronically. Number of Addenda: 0 Note Initiated On: 03/20/2018 7:27 AM Estimated Blood Loss: Estimated blood loss was minimal.
--- NOTE | 2018-03-20 09:55 | ROOR ---
Patient Name: Indigo Herr Procedure Date: 03/20/2018 7:29 AM Date of : 1940 Age: 77 Room: [facility] Gender: Female Note Status: Finalized Procedure: Colonoscopy Indications: Hematochezia Providers: Edgar Guillen MD Referring MD: LUBNA MONTES DO Requesting Provider: Medicines: Monitored Anesthesia Care Complications: No immediate complications. Procedure: Pre-Anesthesia Assessment: - Prior to the procedure, a History and Physical was performed, and patient medications and allergies were reviewed. The patient is competent. The risks and benefits of the procedure and the sedation options and risks were discussed with the patient. All questions were answered and informed consent was obtained. Patient identification and proposed procedure were verified by the physician, the nurse and the anesthesiologist in the procedure room. Mental Status Examination: alert and oriented. Airway Examination: normal oropharyngeal airway and neck mobility. Respiratory Examination: clear to auscultation. CV Examination: normal. Prophylactic Antibiotics: The patient does not require prophylactic antibiotics. Prior Anticoagulants: The patient has taken no previous anticoagulant or antiplatelet agents. ASA Grade Assessment: III - A patient with severe systemic disease. After reviewing the risks and benefits, the patient was deemed in satisfactory condition to undergo the procedure. The anesthesia plan was to use monitored anesthesia care (MAC). Immediately prior to administration of medications, the patient was re-assessed for adequacy to receive sedatives. The heart rate, respiratory rate, oxygen saturations, blood pressure, adequacy of pulmonary ventilation, and response to care were monitored throughout the procedure. The physical status of the patient was re-assessed after the procedure. The colonoscopy was performed without difficulty. The patient tolerated the procedure well. The quality of the bowel preparation was good. The terminal ileum, ileocecal valve, appendiceal orifice, and rectum were photographed. The Colonoscope was introduced through the anus and advanced to the terminal ileum, with identification of the appendiceal orifice and IC valve. Scope insertion time was 4 minutes. Scope withdrawal time was 10 minutes. The total duration of the procedure was 14 minutes. Findings: The perianal and digital rectal examinations were normal. The terminal ileum appeared normal. Four sessile polyps were found in the ascending colon. The polyps were 5 to 8 mm in size. These polyps were removed with a cold snare. Resection and retrieval were complete. For hemostasis, two hemostatic clips were successfully placed. There was no bleeding at the end of the procedure. Non-bleeding external and internal hemorrhoids were found during retroflexion. The hemorrhoids were large. Impression: - The examined portion of the ileum was normal. - Four 5 to 8 mm polyps in the ascending colon, removed with a cold snare. Resected and retrieved. Clips were placed. - Non-bleeding external and internal hemorrhoids. Recommendation: - Patient has a contact number available for emergencies. The signs and symptoms of potential delayed complications were discussed with the patient. Return to normal activities tomorrow. Written discharge instructions were provided to the patient. - High fiber diet. - Continue present medications. - Preparation H ointment: Apply externally daily for 5 days. - Repeat colonoscopy in 3 - 5 years for surveillance based on pathology results. - Return to GI office 1 - 2 weeks. Please call GI clinic @ [phone] for apppointment date and time. - Return to primary care physician. Edgar Guillen MD Edgar Guillen MD 03/20/2018 9:54:56 AM This report has been signed electronically. Number of Addenda: 0 Note Initiated On: 03/20/2018 7:29 AM Estimated Blood Loss: Estimated blood loss was minimal.
[2018-03-20 10:10] VITALS: BP 111/64
== END 2018-03-20 10:21 | disposition home or self-care (01) ==
LOC: M OPP 06:34
PROVIDERS: ATTEND Internal Medicine Gastroenterology
DX: K64.8 Other hemorrhoids (principal); D12.2 Benign neoplasm of ascending colon; K92.1 Melena; K21.0 Gastro-esophageal reflux disease with esophagitis; D13.9 Benign neoplasm of ill-defined sites within the digestive system; E10.9 Type 1 diabetes mellitus without complications; N18.4 Chronic kidney disease, stage 4 (severe); Z79.4 Long term (current) use of insulin; Z79.899 Other long term (current) drug therapy; Z88.0 Allergy status to penicillin; Z88.2 Allergy status to sulfonamides; Z88.8 Allergy status to other drugs, medicaments and biological substances; Z80.41 Family history of malignant neoplasm of ovary; Z80.3 Family history of malignant neoplasm of breast; Z80.1 Family history of malignant neoplasm of trachea, bronchus and lung

== ENCOUNTER → 2018-06-21 | Outpatient (REF) | payer MEDICARE ==
[~2018-06-21] MED LIST changes: -NS 1,000 ML IV ONE
[2018-06-21 14:03] LABS: PERCENT SATURATION 4.3 % (13.2-45.0)
== END ==
LOC: M LAB REF 13:37
PROVIDERS: ATTEND Internal Medicine Nephrology
DX: D50.0 Iron deficiency anemia secondary to blood loss (chronic) (principal); N18.3 Chronic kidney disease, stage 3 (moderate)

== ENCOUNTER 2018-06-22 06:46 | Outpatient (CLI) | payer MEDICARE ==
[~2018-06-22] VITALS: Ht 147.3 cm; Wt 65.9 kg
[2018-06-22 06:50] VITALS: BP 170/72
[2018-06-22] MEDS ORDERED: diphenhydrAMINE 25 MG CAP PO ONE (07:15)
[2018-06-22 10:40] VITALS: BP 158/64
== END 2018-06-22 10:40 | disposition home or self-care (01) ==
LOC: M INFU 06:46
PROVIDERS: ATTEND Internal Medicine Nephrology
DX: D50.0 Iron deficiency anemia secondary to blood loss (chronic) (principal); N18.3 Chronic kidney disease, stage 3 (moderate); E11.9 Type 2 diabetes mellitus without complications; I12.9 Hypertensive chronic kidney disease with stage 1 through stage 4 chronic kidney disease, or unspecified chronic kidney disease; K92.2 Gastrointestinal hemorrhage, unspecified; E83.51 Hypocalcemia; Z88.0 Allergy status to penicillin; Z88.2 Allergy status to sulfonamides; Z88.8 Allergy status to other drugs, medicaments and biological substances
CPT/HCPCS: 36430; P9016

== ENCOUNTER 2018-07-06 08:09 | Outpatient (CLI) | payer MEDICARE ==
[~2018-07-06] VITALS: Ht 147.3 cm; Wt 66.1 kg
[2018-07-06 08:30] VITALS: BP 134/60
[2018-07-06] MEDS ORDERED: IRON SUCROSE 400 MG in NS 250 ML IV ONE (09:00)
[2018-07-06 10:00] VITALS: BP 134/60
[2018-07-06 11:00] VITALS: BP 144/65
[2018-07-06 13:00] VITALS: BP 131/62
== END 2018-07-06 13:00 | disposition home or self-care (01) ==
LOC: M INFU 08:09
PROVIDERS: ATTEND Internal Medicine Nephrology
DX: D50.9 Iron deficiency anemia, unspecified (principal); N18.3 Chronic kidney disease, stage 3 (moderate); I12.9 Hypertensive chronic kidney disease with stage 1 through stage 4 chronic kidney disease, or unspecified chronic kidney disease; K92.2 Gastrointestinal hemorrhage, unspecified; E11.22 Type 2 diabetes mellitus with diabetic chronic kidney disease; E83.51 Hypocalcemia; Z88.0 Allergy status to penicillin; Z88.2 Allergy status to sulfonamides
CPT/HCPCS: 96365; 96366; J1756

== ENCOUNTER → 2018-08-20 | Outpatient (REF) | payer MEDICARE ==
[~2018-08-20] MED LIST changes: +ASPI81TA85 PO; +CARV12.5 PO; -FENO145T13 PO; +FENO145T7 PO; +INSU100I9; +IRBE75TA5 PO; +LASI20TA3 PO; +METH2.5T48 PO; +PRED10TA2 PO
[2018-08-20 13:31] LABS: PERCENT SATURATION 5.9 % (13.2-45.0)
== END ==
LOC: M LAB REF 12:46
PROVIDERS: ATTEND Internal Medicine Nephrology
DX: D50.9 Iron deficiency anemia, unspecified (principal)

== ENCOUNTER 2018-08-28 08:43 | Outpatient (CLI) | payer MEDICARE ==
[~2018-08-28] VITALS: Ht 147.3 cm; Wt 65.9 kg
[~2018-08-28 08:43] MED LIST changes: -ASPI81TA85 PO; -CARV12.5 PO; +FENO145T13 PO; -FENO145T7 PO; -INSU100I9; -IRBE75TA5 PO; -LASI20TA3 PO; -METH2.5T48 PO; -PRED10TA2 PO
[2018-08-28 08:45] VITALS: BP 145/65
[2018-08-28] MEDS ORDERED: IRON SUCROSE 300 MG in NS 250 ML OVER 90 MIN. IV ONE (09:30)
[2018-08-28 10:15] VITALS: BP 111/56
[2018-08-28 12:15] VITALS: BP 128/59
[2018-08-28 13:00] VITALS: BP 143/67
== END 2018-08-28 08:45 | disposition home or self-care (01) ==
LOC: M INFU 08:43
PROVIDERS: ATTEND Internal Medicine Nephrology
DX: D50.9 Iron deficiency anemia, unspecified (principal); Z88.0 Allergy status to penicillin; Z88.1 Allergy status to other antibiotic agents; Z88.2 Allergy status to sulfonamides; Z88.4 Allergy status to anesthetic agent
CPT/HCPCS: 96365; 96366; J1756

== ENCOUNTER 2018-09-04 10:43 | Outpatient (CLI) | payer MEDICARE ==
[~2018-09-04] VITALS: Ht 142.2 cm; Wt 65.9 kg
[2018-09-04 10:55] VITALS: BP 176/78
[2018-09-04 11:47] VITALS: BP 140/63
[2018-09-04] MEDS ORDERED: IRON SUCROSE 300 MG in NS 250 ML IV ONE (12:00)
[2018-09-04 12:38] VITALS: BP 134/62
[2018-09-04 13:35] VITALS: BP 168/72
[2018-09-04 14:32] VITALS: BP 148/70
== END 2018-09-04 15:00 ==
LOC: M INFU 10:43
PROVIDERS: ATTEND Internal Medicine Nephrology
DX: D50.9 Iron deficiency anemia, unspecified (principal); Z88.0 Allergy status to penicillin; Z88.2 Allergy status to sulfonamides; Z88.8 Allergy status to other drugs, medicaments and biological substances
CPT/HCPCS: 96365; 96366; J1756

== ENCOUNTER 2018-09-11 11:14 | Outpatient (CLI) | payer MEDICARE ==
[~2018-09-11] VITALS: Ht 147.3 cm; Wt 65.9 kg
[2018-09-11 11:52] VITALS: BP 171/70
[2018-09-11] MEDS ORDERED: IRON SUCROSE 300 MG in NS 250 ML OVER 90 MIN. IV ONE (12:00)
[2018-09-11 12:20] VITALS: BP 158/67
[2018-09-11 13:20] VITALS: BP 152/74
[2018-09-11 14:16] VITALS: BP 168/72
[2018-09-11 15:00] VITALS: BP 156/82
[2018-09-11 15:16] VITALS: BP 158/92
== END 2018-09-11 15:15 ==
LOC: M INFU 11:14
PROVIDERS: ATTEND Internal Medicine Nephrology
DX: D50.9 Iron deficiency anemia, unspecified (principal); Z79.899 Other long term (current) drug therapy
CPT/HCPCS: 96365; 96366; J1756

== ENCOUNTER 2018-11-21 10:37 | Emergency (ER) | payer MEDICARE ==
[~2018-11-21] VITALS: Ht 147.3 cm; Wt 61.0 kg
[2018-11-21] MEDS ORDERED: FENO145T13 PO (10:54)
[2018-11-21] MEDS ORDERED: CARV12.5 PO (10:54)
[2018-11-21] MEDS ORDERED: LEVE1INJ5 SC (10:54)
[2018-11-21 11:25] LABS: BASO % 0.3 % (0.0-1.0); EOS # 0.1 10^3/uL (0.0-0.5); EOS % 2.4 % (0.0-3.0); HEMATOCRIT 42.1 % (36.0-47.0); HEMOGLOBIN 13.7 g/dl (12.0-15.5); LYMPH # 0.9 10^3/uL (1.5-5.0); LYMPH % 15.5 % (24.0-44.0); MEAN CORPUSCULAR HEMOGLOBIN 30.2 pg (27.0-33.0); MEAN CORPUSCULAR HGB CONC 32.5 g/dl (32.0-36.5); MEAN CORPUSCULAR VOLUME 92.9 fl (80.0-96.0); MONO # 0.4 10^3/uL (0.0-0.8); MONO % 5.9 % (0.0-5.0); NEUTROPHILS # 4.5 10^3/uL (1.5-8.5); NEUTROPHILS % 75.7 % (36.0-66.0); RED BLOOD COUNT 4.53 10^6/uL (4.00-5.40); WHITE BLOOD COUNT 5.9 10^3/uL (4.0-10.0)
[2018-11-21 11:54] LABS: PLATELET COUNT, AUTOMATED 26 10^3/uL (150-450)
[2018-11-21 13:10] VITALS: BP 198/82
[2018-11-21 13:25] VITALS: BP 196/79
[2018-11-21 14:25] VITALS: BP 183/77
[2018-11-21] MEDS ORDERED: ACETAMINOPHEN TAB 650MG DOSE (2X325MG) PO ONE (15:00)
--- NOTE | 2018-11-21 15:14 | ECGEPIP ---
[facility] - ED Test Date: 2018-11-21 Pat Name: DELROY MCCABE Department: Room: - Gender: Female [employer] Analyst: carrington : 1940 Requested By: Mundo Savage Order Number: [id number] Reading MD: Radha Bowens Measurements Intervals [place] Rate: 64 P: 47 NH: 154 QRS: -7 QRSD: 161 T: -2 QT: 483 QTc: 500 Interpretive Statements SINUS RHYTHM RIGHT BUNDLE BRANCH BLOCK DECREASED RATE 10/27/17 Electronically Signed on 11-21-2018 15:13:41 EDT by Radha Bowens
[2018-11-21 15:25] VITALS: BP 183/72
[2018-11-21 15:39] VITALS: BP 183/72
[2018-11-23] MEDS ORDERED: LASI20TA3 PO (09:04)
[2018-11-23] MEDS ORDERED: PRED10TA2 PO (09:52)
[2018-11-23] MEDS ORDERED: METH2.5T48 PO (09:54)
== END 2018-11-21 15:54 | disposition home or self-care (01) ==
LOC: M ED 10:37
DX: R79.9 Abnormal finding of blood chemistry, unspecified (principal); Z88.0 Allergy status to penicillin; Z88.2 Allergy status to sulfonamides; Z88.1 Allergy status to other antibiotic agents; Z79.899 Other long term (current) drug therapy
CPT/HCPCS: 36415; 36430; 85025; 85049; 85055; 86850; 86900; 86901; 93005; 99284; P9036

== ENCOUNTER → 2018-11-30 | Outpatient (REF) | payer MEDICARE ==
[~2018-11-30] MED LIST changes: +CARV12.5 PO; +LASI20TA3 PO; +METH2.5T48 PO; +PRED10TA2 PO
[2018-11-30 13:29] LABS: PERCENT SATURATION 29.8 % (13.2-45.0)
== END ==
LOC: M LAB REF 12:34
PROVIDERS: ATTEND Nurse Practitioner Family
DX: D50.9 Iron deficiency anemia, unspecified (principal)

== ENCOUNTER → 2019-10-03 | Outpatient (REF) | payer MEDICARE ==
[~2019-10-03] MED LIST changes: +ASPI81TA86 PO; +CARV3.12; -FENO145T13 PO; +FENO145T7 PO; +INSU100I9; +IRBE75TA4 PO; +PANT40TA29 PO; +VALI2TAB PO; +VITA-243 PO; -VITA500T PO
== END ==
LOC: M LAB REF 18:14
PROVIDERS: ATTEND Nurse Practitioner Family
DX: N39.0 Urinary tract infection, site not specified (principal)

== ENCOUNTER → 2020-11-05 | Outpatient (REF) | payer MEDICARE ==
[~2020-11-05] MED LIST changes: +HYDR100T PO; +HYDR10TAB PO
== END ==
LOC: M LAB REF 14:00
PROVIDERS: ATTEND Nurse Practitioner Family
DX: E83.42 Hypomagnesemia (principal)

== ENCOUNTER → 2021-06-11 | Outpatient (CLI) | payer MEDICARE ==
[~2021-06-11] MED LIST changes: +CEFA1INJ4 IV; +FURO20TA2; +LIDOCAINE 1% MDV 20ML VIAL As Ordered ONE; +MECL-86 PO
[2021-06-11 13:17] VITALS: BP 158/70
== END ==
LOC: M IRPRO 12:10
PROVIDERS: ATTEND Physician Assistant
DX: R78.81 Bacteremia (principal)
CPT/HCPCS: 36571; 76937; C1751; J1642; J1644

== ENCOUNTER 2021-06-16 08:48 | Emergency (ER) | payer MEDICARE ==
[~2021-06-16] VITALS: Ht 147.3 cm; Wt 70.5 kg
[~2021-06-16 08:48] MED LIST changes: -CEFA1INJ4 IV; -FURO20TA2; -LIDOCAINE 1% MDV 20ML VIAL As Ordered ONE
[2021-06-16] MEDS ORDERED: CEFA1INJ4 IV (09:12)
[2021-06-16] MEDS ORDERED: FURO20TA2 (09:12)
[2021-06-16 12:26] LABS: BASO # 0.1 10^3/uL (0.0-0.2); BASO % 0.9 % (0.0-1.0); EOS # 0.2 10^3/uL (0.0-0.5); EOS % 2.5 % (0.0-3.0); HEMATOCRIT 29.3 % (36.0-47.0); HEMOGLOBIN 9.3 g/dl (12.0-15.5); LYMPH # 1.1 10^3/uL (1.5-5.0); LYMPH % 15.9 % (24.0-44.0); MEAN CORPUSCULAR HEMOGLOBIN 32.6 pg (27.0-33.0); MEAN CORPUSCULAR HGB CONC 31.7 g/dl (32.0-36.5); MEAN CORPUSCULAR VOLUME 102.8 fl (80.0-96.0); MONO # 0.6 10^3/uL (0.0-0.8); MONO % 9.3 % (2.0-8.0); NEUTROPHILS # 4.7 10^3/uL (1.5-8.5); NEUTROPHILS % 70.8 % (36.0-66.0); RED BLOOD COUNT 2.85 10^6/uL (4.00-5.40); WHITE BLOOD COUNT 6.7 10^3/uL (4.0-10.0)
[2021-06-16 13:12] VITALS: BP 126/57
[2021-06-16 13:24] LABS: PLATELET COUNT, AUTOMATED 60 10^3/uL (150-450)
== END 2021-06-16 14:03 | disposition home or self-care (01) ==
LOC: M ED 08:48
DX: T82.838A Hemorrhage due to vascular prosthetic devices, implants and grafts, initial encounter (principal); Y71.2 Prosthetic and other implants, materials and accessory cardiovascular devices associated with adverse incidents; R78.81 Bacteremia; D69.6 Thrombocytopenia, unspecified; N18.30 Chronic kidney disease, stage 3 unspecified; Z86.718 Personal history of other venous thrombosis and embolism; Z88.0 Allergy status to penicillin; Z88.1 Allergy status to other antibiotic agents; Z88.2 Allergy status to sulfonamides; Z79.899 Other long term (current) drug therapy; Z79.4 Long term (current) use of insulin

== ENCOUNTER → 2021-07-02 | Outpatient (REF) | payer MEDICARE ==
[~2021-07-02] MED LIST changes: +CEFA1INJ4 IV; +FURO20TA2
[2021-07-06 17:55] LABS: PERCENT SATURATION 49.6 % (13.2-45.0)
== END ==
LOC: M LAB REF 17:04
PROVIDERS: ATTEND Nurse Practitioner Family
DX: D50.9 Iron deficiency anemia, unspecified (principal)

== ENCOUNTER → 2022-03-23 | Outpatient (REF) | payer MEDICARE ==
[~2022-03-23] MED LIST changes: +LACT20EL PO; +SPIR100T3; +TORS20TA2; +VERI2.5T PO; +XIFA200T2 PO
[2022-03-23 18:20] LABS: FERRITIN 37.7 NG/ML (7.3-270.7); PERCENT SATURATION 13.9 % (13.2-45.0)
== END ==
LOC: M LAB REF 17:00
PROVIDERS: ATTEND Nurse Practitioner Family
DX: D50.9 Iron deficiency anemia, unspecified (principal)

== ENCOUNTER 2022-04-28 09:50 | Inpatient (IN) | payer MEDICARE ==
[~2022-04-28] VITALS: Ht 154.9 cm; Wt 71.5 kg
[2022-04-28] MEDS: LEVOTHYROXINE 25MCG TABLET (0.025MG) PO SCH (06:00)
[2022-04-28] MEDS: ESCITALOPRAM OXALATE 10 MG TAB (LEXAPRO) PO SCH (09:00)
[2022-04-28] MEDS: LEVEMIR (INSULIN DETEMIR) 1 UNITS/0.01ML SC SCH (09:00)
[~2022-04-28 09:50] MED LIST changes: -CARV3.12; +CARV3.12 PO; +INSU100I6 SC; -INSU100I9; +INSU100I9 SC; -LEVE1INJ5 SC; -TORS20TA2; +TORS20TA2 PO
[2022-04-28 10:38] LABS: BASO % 0.4 % (0.0-1.0); EOS # 0.2 10^3/uL (0.0-0.5); EOS % 2.7 % (0.0-3.0); HEMATOCRIT 28.4 % (36.0-47.0); LYMPH # 1.2 10^3/uL (1.5-5.0); LYMPH % 17.7 % (24.0-44.0); MEAN CORPUSCULAR HEMOGLOBIN 32.3 pg (27.0-33.0); MEAN CORPUSCULAR HGB CONC 31.7 g/dl (32.0-36.5); MEAN CORPUSCULAR VOLUME 101.8 fl (80.0-96.0); MONO # 0.6 10^3/uL (0.0-0.8); MONO % 8.7 % (2.0-8.0); NEUTROPHILS # 4.8 10^3/uL (1.5-8.5); NEUTROPHILS % 70.2 % (36.0-66.0); RED BLOOD COUNT 2.79 10^6/uL (4.00-5.40); WHITE BLOOD COUNT 6.8 10^3/uL (4.0-10.0)
[2022-04-28 10:39] LABS: PLATELET COUNT, AUTOMATED 49 10^3/uL (150-450)
[2022-04-28 11:08] LABS: ALBUMIN 2.8 G/DL (3.2-5.2); BILIRUBIN,DIRECT 0.4 MG/DL (<0.4); BILIRUBIN,TOTAL 1.3 MG/DL (0.3-1.2); CALCIUM LEVEL 8.7 MG/DL (8.3-10.6); CREATININE FOR GFR 2.92 MG/DL (0.55-1.30); GLOMERULAR FILTRATION RATE 16.4 (>32); THYROID STIMULATING HORMONE 1.282 uIU/ML (0.55-4.78); TOTAL PROTEIN 5.8 G/DL (5.7-8.2)
[2022-04-28] MEDS ORDERED: DEXTROSE 50% 50ML SYRINGE IV STA (13:04)
[2022-04-28] MEDS ORDERED: CALCIUM GLUCONATE 1,000 MG in D5W MINI-BAG PLUS 100 ML IV ONE (13:05)
[2022-04-28] MEDS ORDERED: NS 1,000 ML IV SCH (13:05)
[2022-04-28] MEDS ORDERED: HumuLIN R (REGULAR) INSULIN (NovoLIN R) **100U/ML** PER UNIT IV ONE (13:05)
[2022-04-28] MEDS ORDERED: ACETAMINOPHEN TAB 650MG DOSE (2X325MG) PO PRN (13:45)
[2022-04-28] MEDS ORDERED: MAALOX 30 ML SUSP *UDC PO PRN (13:45)
[2022-04-28] MEDS ORDERED: MOM 30ML SUSPENSION UDC PO PRN (13:45)
[2022-04-28 13:55] LABS: VENOUS PH 7.222 UNITS (7.330-7.430)
[2022-04-28 13:56] LABS: VENOUS BASE EXCESS -12.4 (-2.0-2.0); VENOUS HCO3 14.3 MEQ/L (23.0-27.0); VENOUS O2 SATURATION 87.2 % (60.0-80.0); VENOUS PARTIAL PRESSURE CO2 35.5 mmHg (38.0-50.0); VENOUS PARTIAL PRESSURE O2 58.8 mmHg (30.0-50.0); VENOUS STANDARD HCO3 14.5 MEQ/L; VENOUS TOTAL CO2 15.4 MEQ/L (24.0-28.0)
[2022-04-28] MEDS ORDERED: DEXTROSE 50% 50ML SYRINGE IV PRN (14:00)
[2022-04-28] MEDS ORDERED: GLUCAGON INJ 1MG VIAL SC PRN (14:00)
[2022-04-28] MEDS ORDERED: GLUCOSE 4GM CHEW TABLET PO PRN (14:00)
[2022-04-28] MEDS ORDERED: HEPARIN SOD (PORCINE) 5000UNITS/ML 1ML VIAL/SYRINGE SQ SCH (14:10)
[2022-04-28] MEDS ORDERED: SPIR-10 PO (14:31)
[2022-04-28] MEDS ORDERED: XIFA550T PO (14:31)
[2022-04-28 14:35] LABS: RSV AMPLIFICATION NEGATIVE (NEGATIVE)
[2022-04-28] MEDS ORDERED: HOME MED LIST COMPLETE! XX SCH (14:35)
[2022-04-28] MEDS ORDERED: PANTOPRAZOLE 40MG VIAL IV SCH (15:00)
[2022-04-28] MEDS ORDERED: CIPROFLOXACIN 400 MG in IV 1 EA IV SCH (15:15)
[2022-04-28] MEDS ORDERED: diazePAM 2 MG TAB PO PRN (15:15)
[2022-04-28] MEDS: CIPROFLOXACIN 200 MG in IV 1 EA IV SCH (15:32)
[2022-04-28] MEDS: SODIUM BICARBONATE 150 MEQ in STERILE WATER LITER BAG 1,000 ML IV SCH (15:33)
[2022-04-28 15:47] LABS: INR 1.54; PROTHROMBIN TIME 18.8 SECONDS (12.5-14.5)
[2022-04-28 15:48] LABS: PARTIAL THROMBOPLASTIN TIME 41.6 SECONDS (24.8-34.2)
[2022-04-28 16:09] LABS: CALCIUM LEVEL 8.6 MG/DL (8.3-10.6); CREATININE FOR GFR 2.78 MG/DL (0.55-1.30); GLOMERULAR FILTRATION RATE 17.4 (>32); POTASSIUM SERUM 5.1 MMOL/L (3.5-5.1)
[2022-04-28] MEDS: LACTULOSE 20GM/30ML SYRUP UDC PO SCH (18:20)
[2022-04-28] MEDS: INSULIN LISPRO (NovoLOG) PER UNIT SC SCH ×2 (18:20→20:28)
[2022-04-28 21:26] LABS: CREATININE,RANDOM URINE 149.8 MG/DL
[2022-04-28] MEDS: CARVedilol 6.25 MG TAB PO SCH (21:43)
[2022-04-28] MEDS: DOCUSATE SODIUM 100MG CAPSULE PO SCH (21:43)
[2022-04-28] MEDS: FERROUS GLUCONATE 324 MG TAB PO SCH (21:43)
[2022-04-28] MEDS: rifAXIMin 550 MG TAB (XIFAXAN) PO SCH (21:43)
[2022-04-29] MEDS: LACTULOSE 20GM/30ML SYRUP UDC PO SCH ×5 (00:33→23:38)
[2022-04-29 01:14] LABS: CALCIUM LEVEL 8.2 MG/DL (8.3-10.6); CREATININE FOR GFR 2.6 MG/DL (0.55-1.30); GLOMERULAR FILTRATION RATE 18.8 (>32); POTASSIUM SERUM 4.8 MMOL/L (3.5-5.1)
[2022-04-29] MEDS: SODIUM BICARBONATE 150 MEQ in STERILE WATER LITER BAG 1,000 ML IV SCH (03:42)
[2022-04-29] MEDS: CIPROFLOXACIN 200 MG in IV 1 EA IV SCH (04:40)
[2022-04-29 04:46] LABS: BASO % 0.2 % (0.0-1.0); EOS # 0.2 10^3/uL (0.0-0.5); EOS % 3.2 % (0.0-3.0); LYMPH # 1.2 10^3/uL (1.5-5.0); MEAN CORPUSCULAR HEMOGLOBIN 31.9 pg (27.0-33.0); MEAN CORPUSCULAR VOLUME 99.6 fl (80.0-96.0); MONO # 0.5 10^3/uL (0.0-0.8); MONO % 8.3 % (2.0-8.0); NEUTROPHILS # 3.8 10^3/uL (1.5-8.5); NEUTROPHILS % 66.9 % (36.0-66.0); RED BLOOD COUNT 2.51 10^6/uL (4.00-5.40); WHITE BLOOD COUNT 5.7 10^3/uL (4.0-10.0)
[2022-04-29 04:48] LABS: PLATELET COUNT, AUTOMATED 38 10^3/uL (150-450)
[2022-04-29] MEDS: LEVOTHYROXINE 25MCG TABLET (0.025MG) PO SCH (05:21)
[2022-04-29 08:39] LABS: ALBUMIN 2.3 G/DL (3.2-5.2); BILIRUBIN,TOTAL 1.7 MG/DL (0.3-1.2); CREATININE FOR GFR 2.61 MG/DL (0.55-1.30); GLOMERULAR FILTRATION RATE 18.7 (>32); MAGNESIUM LEVEL 1.9 MG/DL (1.8-2.4); POTASSIUM SERUM 4.6 MMOL/L (3.5-5.1); TOTAL PROTEIN 4.8 G/DL (5.7-8.2)
[2022-04-29] MEDS: ESCITALOPRAM OXALATE 10 MG TAB (LEXAPRO) PO SCH (08:54)
[2022-04-29 08:55] VITALS: BP 126/53
[2022-04-29] MEDS: CARVedilol 6.25 MG TAB PO SCH ×2 (08:55→20:46)
[2022-04-29] MEDS: INSULIN LISPRO (NovoLOG) PER UNIT SC SCH ×4 (08:56→20:46)
[2022-04-29] MEDS: LEVEMIR (INSULIN DETEMIR) 1 UNITS/0.01ML SC SCH (08:56)
[2022-04-29] MEDS: DOCUSATE SODIUM 100MG CAPSULE PO SCH ×3 (08:56→20:52)
[2022-04-29] MEDS ORDERED: XIFA550T PO (10:28)
[2022-04-29] MEDS: rifAXIMin 550 MG TAB (XIFAXAN) PO SCH ×2 (10:59→20:48)
[2022-04-29] MEDS: FERROUS GLUCONATE 324 MG TAB PO SCH ×2 (11:00→20:48)
[2022-04-29] MEDS ORDERED: CIPROFLOXACIN 250MG TAB PO ONE (14:00)
[2022-04-29 14:51] VITALS: BP 101/51
[2022-04-29 16:17] VITALS: BP 98/51
[2022-04-29] MEDS: PANTOPRAZOLE 40MG TAB (PROTONIX) PO SCH (16:40)
[2022-04-29 20:00] VITALS: BP 98/50
[2022-04-30] VITALS: BP 111/56
[2022-04-30 04:00] VITALS: BP 110/51
[2022-04-30] MEDS: LACTULOSE 20GM/30ML SYRUP UDC PO SCH (05:41)
[2022-04-30] MEDS: LEVOTHYROXINE 25MCG TABLET (0.025MG) PO SCH (05:42)
[2022-04-30] MEDS ORDERED: CIPROFLOXACIN 500MG TABLET PO SCH (06:00)
[2022-04-30 06:12] LABS: BASO % 0.3 % (0.0-1.0); EOS # 0.2 10^3/uL (0.0-0.5); EOS % 3.1 % (0.0-3.0); HEMATOCRIT 25.4 % (36.0-47.0); HEMOGLOBIN 7.9 g/dl (12.0-15.5); LYMPH # 1.4 10^3/uL (1.5-5.0); LYMPH % 23.1 % (24.0-44.0); MEAN CORPUSCULAR HEMOGLOBIN 31.5 pg (27.0-33.0); MEAN CORPUSCULAR HGB CONC 31.1 g/dl (32.0-36.5); MEAN CORPUSCULAR VOLUME 101.2 fl (80.0-96.0); MONO # 0.6 10^3/uL (0.0-0.8); MONO % 9.7 % (2.0-8.0); NEUTROPHILS # 3.7 10^3/uL (1.5-8.5); NEUTROPHILS % 63.3 % (36.0-66.0); RED BLOOD COUNT 2.51 10^6/uL (4.00-5.40); WHITE BLOOD COUNT 5.9 10^3/uL (4.0-10.0)
[2022-04-30 06:18] LABS: PLATELET COUNT, AUTOMATED 35 10^3/uL (150-450)
[2022-04-30 06:38] LABS: ALBUMIN 2.3 G/DL (3.2-5.2); BILIRUBIN,TOTAL 1.5 MG/DL (0.3-1.2); CALCIUM LEVEL 8.2 MG/DL (8.3-10.6); CREATININE FOR GFR 2.84 MG/DL (0.55-1.30); GLOMERULAR FILTRATION RATE 16.9 (>32); MAGNESIUM LEVEL 2.1 MG/DL (1.8-2.4); POTASSIUM SERUM 5.4 MMOL/L (3.5-5.1); TOTAL PROTEIN 4.8 G/DL (5.7-8.2)
[2022-04-30] MEDS: INSULIN LISPRO (NovoLOG) PER UNIT SC SCH (08:32)
[2022-04-30] MEDS: TORSEMIDE 20 MG TAB PO SCH ×2 (08:33→09:00)
[2022-04-30] MEDS: FERROUS GLUCONATE 324 MG TAB PO SCH ×2 (08:33→09:00)
[2022-04-30] MEDS: LEVEMIR (INSULIN DETEMIR) 1 UNITS/0.01ML SC SCH (08:33)
[2022-04-30] MEDS: CARVedilol 6.25 MG TAB PO SCH ×2 (08:33→09:00)
[2022-04-30] MEDS: DOCUSATE SODIUM 100MG CAPSULE PO SCH ×2 (08:34→09:00)
[2022-04-30] MEDS: ESCITALOPRAM OXALATE 10 MG TAB (LEXAPRO) PO SCH ×2 (08:34→09:00)
[2022-04-30] MEDS: PANTOPRAZOLE 40MG TAB (PROTONIX) PO SCH ×2 (08:34→09:00)
[2022-04-30 08:48] VITALS: BP 136/63
[2022-04-30] MEDS: rifAXIMin 550 MG TAB (XIFAXAN) PO SCH (09:00)
[2022-04-30] MEDS ORDERED: CIPR-249 PO (09:24)
[2022-04-30] MEDS ORDERED: SPIR-10 PO (09:24)
[2022-04-30] MEDS ORDERED: LACT20EL PO (09:24)
== END 2022-04-30 12:14 | disposition home health service (06) | DRG 433 ==
LOC: M ED 09:50 → EDBD 09:50 → M ED INP 13:42 → M PCU 04-29 14:55
PROVIDERS: ADMIT Internal Medicine; ATTEND Internal Medicine
DX: K74.60 Unspecified cirrhosis of liver (principal); E87.20 Acidosis, unspecified; C91.Z0 Other lymphoid leukemia not having achieved remission; D69.3 Immune thrombocytopenic purpura; E87.5 Hyperkalemia; I12.9 Hypertensive chronic kidney disease with stage 1 through stage 4 chronic kidney disease, or unspecified chronic kidney disease; E11.22 Type 2 diabetes mellitus with diabetic chronic kidney disease; E03.9 Hypothyroidism, unspecified; N18.30 Chronic kidney disease, stage 3 unspecified; H91.93 Unspecified hearing loss, bilateral; D50.9 Iron deficiency anemia, unspecified; Z86.73 Personal history of transient ischemic attack (TIA), and cerebral infarction without residual deficits; F41.9 Anxiety disorder, unspecified; K76.82 Hepatic encephalopathy; F32.A Depression, unspecified; Z66 Do not resuscitate; K21.9 Gastro-esophageal reflux disease without esophagitis; Z79.4 Long term (current) use of insulin; Z79.890 Hormone replacement therapy; Z79.899 Other long term (current) drug therapy; Z88.1 Allergy status to other antibiotic agents; Z88.2 Allergy status to sulfonamides; Z88.0 Allergy status to penicillin

== ENCOUNTER → 2022-06-03 | Outpatient (REF) | payer MEDICARE ==
[~2022-06-03] MED LIST changes: +CIPR-249 PO; +FLUT50SP17; -FLUTISP; +SPIR-10 PO; +XIFA550T PO
== END ==
LOC: M LAB REF 14:31
PROVIDERS: ATTEND Family Medicine
DX: K74.69 Other cirrhosis of liver (principal)

== ENCOUNTER 2022-08-16 19:01 | Inpatient (IN) | payer MEDICARE ==
[~2022-08-16] VITALS: Ht 147.3 cm; Wt 76.8 kg
[~2022-08-16 19:01] MED LIST changes: +INSU100I24 SC; -INSU100I9 SC
[2022-08-17] VITALS (16 sets, daily range): BP systolic 105–154; BP diastolic 52–87; TEMP 97.3–99.1; O2SAT 94–100
[2022-08-17 00:41] LABS: INR 1.58; PROTHROMBIN TIME 19.2 SECONDS (12.5-14.5)
[2022-08-17 00:42] LABS: PARTIAL THROMBOPLASTIN TIME 47.9 SECONDS (24.8-34.2)
[2022-08-17 00:44] LABS: LIPASE 151 U/L (12-53)
[2022-08-17 00:46] LABS: ALBUMIN 1.9 G/DL (3.2-5.2); ALKALINE PHOSPHATASE 112 U/L (46-116); ALT/SGPT < 9 U/L (7.0-40); AST/SGOT < 8 U/L (<34); BILIRUBIN,DIRECT 0.6 MG/DL (<0.4); BILIRUBIN,TOTAL 1.2 MG/DL (0.3-1.2); BLOOD UREA NITROGEN 69 MG/DL (9-23); CALCIUM LEVEL 6.7 MG/DL (8.3-10.6); CARBON DIOXIDE LEVEL 24 MMOL/L (20-31); CHLORIDE LEVEL 113 MMOL/L (98-107); CREATININE FOR GFR 3.38 MG/DL (0.55-1.30); GLOMERULAR FILTRATION RATE 13.9 (>32); GLUCOSE, FASTING 204 MG/DL (74-106); POTASSIUM SERUM 3.6 MMOL/L (3.5-5.1); SODIUM LEVEL 145 MMOL/L (136-145); TOTAL PROTEIN 4.4 G/DL (5.7-8.2)
[2022-08-17 00:53] LABS: BASO # 0.1 10^3/uL (0.0-0.2); BASO % 0.6 % (0.0-1.0); EOS # 0.4 10^3/uL (0.0-0.5); EOS % 4.2 % (0.0-3.0); HEMATOCRIT 22.2 % (36.0-47.0); LYMPH # 1.6 10^3/uL (1.5-5.0); LYMPH % 17.5 % (24.0-44.0); MEAN CORPUSCULAR HEMOGLOBIN 31.5 pg (27.0-33.0); MEAN CORPUSCULAR HGB CONC 30.6 g/dl (32.0-36.5); MEAN CORPUSCULAR VOLUME 102.8 fl (80.0-96.0); MONO % 10.9 % (2.0-8.0); NEUTROPHILS % 66.4 % (36.0-66.0); RED BLOOD COUNT 2.16 10^6/uL (4.00-5.40); WHITE BLOOD COUNT 9.1 10^3/uL (4.0-10.0)
[2022-08-17 01:12] LABS: HEMOGLOBIN 6.8 g/dl (12.0-15.5)
[2022-08-17 02:15] LABS: PLATELET COUNT, AUTOMATED 55 10^3/uL (150-450)
[2022-08-17] MEDS ORDERED: NS 1,000 ML IV SCH (04:45)
[2022-08-17] MEDS ORDERED: SODI650T PO (06:16)
[2022-08-17] MEDS ORDERED: SYNT50TA PO (06:16)
[2022-08-17] MEDS ORDERED: INSUDET SC (06:16)
[2022-08-17] MEDS ORDERED: DOXY100T27 PO (06:16)
[2022-08-17] MEDS ORDERED: LACT10SO3 PO (06:16)
[2022-08-17] MEDS ORDERED: HOME MED LIST COMPLETE! XX SCH (06:20)
[2022-08-17] MEDS ORDERED: diazePAM 2 MG TAB PO PRN (07:00)
[2022-08-17] MEDS: LEVOTHYROXINE 50MCG TABLET (0.05MG) PO SCH (08:07)
[2022-08-17] MEDS ORDERED: CLINDAMYCIN 600 MG in IV 1 EA IV ONE (09:00)
[2022-08-17] MEDS ORDERED: PHYTONADIONE 5 MG TAB PO ONE (09:00)
[2022-08-17 09:18] LABS: HEMATOCRIT 28.3 % (36.0-47.0); MEAN CORPUSCULAR HEMOGLOBIN 31.3 pg (27.0-33.0); MEAN CORPUSCULAR HGB CONC 31.8 g/dl (32.0-36.5); MEAN CORPUSCULAR VOLUME 98.3 fl (80.0-96.0); RED BLOOD COUNT 2.88 10^6/uL (4.00-5.40); WHITE BLOOD COUNT 8.6 10^3/uL (4.0-10.0)
[2022-08-17 09:19] LABS: PLATELET COUNT, AUTOMATED 44 10^3/uL (150-450)
[2022-08-17 09:23] LABS: HEMOGLOBIN 9.1 g/dl (12.0-15.5)
[2022-08-17] MEDS: CARVedilol 3.125 MG TAB PO SCH ×2 (09:27→21:00)
[2022-08-17] MEDS: PANTOPRAZOLE 40MG VIAL IV SCH (09:27)
[2022-08-17 09:43] LABS: ALKALINE PHOSPHATASE 111 U/L (46-116); ALT/SGPT < 9 U/L (7.0-40); AST/SGOT < 8 U/L (<34); BILIRUBIN,TOTAL 4.6 MG/DL (0.3-1.2); BLOOD UREA NITROGEN 74 MG/DL (9-23); CALCIUM LEVEL 7.2 MG/DL (8.3-10.6); CARBON DIOXIDE LEVEL 26 MMOL/L (20-31); CHLORIDE LEVEL 114 MMOL/L (98-107); CREATININE FOR GFR 3.32 MG/DL (0.55-1.30); GLOMERULAR FILTRATION RATE 14.1 (>32); GLUCOSE, FASTING 130 MG/DL (74-106); POTASSIUM SERUM 3.7 MMOL/L (3.5-5.1); SODIUM LEVEL 147 MMOL/L (136-145); TOTAL PROTEIN 4.7 G/DL (5.7-8.2)
[2022-08-17] MEDS ORDERED: NS 0.45% 1,000 ML IV SCH (11:30)
[2022-08-17 12:00] LABS: IRON (FE) 166 UG/DL (50-170); PERCENT SATURATION 71.9 % (13.2-45.0); TOTAL IRON BINDING CAPACITY 231 UG/DL (250-425)
[2022-08-17 12:03] LABS: FERRITIN 76.5 NG/ML (7.3-270.7)
[2022-08-17] MEDS ORDERED: SODIUM CHLORIDE 0.9% INJ 10 ML SYR IV PRN (14:35)
[2022-08-17] MEDS: FUROSEMIDE 100MG/10ML VIAL IV SCH ×2 (15:14→21:00)
[2022-08-17] MEDS: SODIUM CHLORIDE 0.9% INJ 10 ML SYR IV SCH ×2 (15:54→21:01)
[2022-08-17] MEDS ORDERED: CLINDAMYCIN 150MG CAPSULE PO SCH (16:00)
[2022-08-17] MEDS: CLINDAMYCIN 150MG CAPSULE PO SCH ×2 (17:51→21:00)
[2022-08-17] MEDS: INSULIN LISPRO (NovoLOG) PER UNIT SC SCH ×2 (17:51→20:39)
[2022-08-17] MEDS ORDERED: LEVEMIR (INSULIN DETEMIR) 1 UNITS/0.01ML SC SCH (21:00)
[2022-08-18] VITALS (7 sets, daily range): BP systolic 87–128; BP diastolic 51–61; TEMP 97.4–98.5; O2SAT 94–97
[2022-08-18] MEDS: LEVOTHYROXINE 50MCG TABLET (0.05MG) PO SCH (05:48)
[2022-08-18] MEDS: SODIUM CHLORIDE 0.9% INJ 10 ML SYR IV SCH ×3 (05:49→22:56)
[2022-08-18] MEDS: FUROSEMIDE 100MG/10ML VIAL IV SCH ×3 (05:49→22:56)
[2022-08-18 06:32] LABS: HEMATOCRIT 27.8 % (36.0-47.0); HEMOGLOBIN 8.9 g/dl (12.0-15.5); MEAN CORPUSCULAR HEMOGLOBIN 31.1 pg (27.0-33.0); MEAN CORPUSCULAR VOLUME 97.2 fl (80.0-96.0); RED BLOOD COUNT 2.86 10^6/uL (4.00-5.40); WHITE BLOOD COUNT 11.5 10^3/uL (4.0-10.0)
[2022-08-18 06:34] LABS: PLATELET COUNT, AUTOMATED 55 10^3/uL (150-450)
[2022-08-18 06:53] LABS: IRON (FE) 149 UG/DL (50-170)
[2022-08-18 06:55] LABS: ALBUMIN 1.8 G/DL (3.2-5.2); ALKALINE PHOSPHATASE 91 U/L (46-116); ALT/SGPT < 9 U/L (7.0-40); AST/SGOT < 8 U/L (<34); BILIRUBIN,TOTAL 2.6 MG/DL (0.3-1.2); BLOOD UREA NITROGEN 73 MG/DL (9-23); CARBON DIOXIDE LEVEL 25 MMOL/L (20-31); CHLORIDE LEVEL 114 MMOL/L (98-107); CREATININE FOR GFR 3.34 MG/DL (0.55-1.30); GLOMERULAR FILTRATION RATE 14.1 (>32); GLUCOSE, FASTING 47 MG/DL (74-106); POTASSIUM SERUM 3.7 MMOL/L (3.5-5.1); SODIUM LEVEL 147 MMOL/L (136-145); TOTAL PROTEIN 4.4 G/DL (5.7-8.2)
[2022-08-18] MEDS: INSULIN LISPRO (NovoLOG) PER UNIT SC SCH ×4 (07:30→21:00)
[2022-08-18] MEDS: PANTOPRAZOLE 40MG VIAL IV SCH (09:45)
[2022-08-18] MEDS: CLINDAMYCIN 150MG CAPSULE PO SCH ×4 (09:45→21:39)
[2022-08-18] MEDS: CARVedilol 3.125 MG TAB PO SCH ×2 (09:45→21:39)
[2022-08-18] MEDS: POTASSIUM CHLORIDE 10MEQ SR TABLET PO SCH ×2 (13:57→21:40)
[2022-08-18] MEDS: KCL 20MEQ IN D5/0.45NS 1000ML 1,000 ML IV SCH (13:57)
[2022-08-19] MEDS: KCL 20MEQ IN D5/0.45NS 1000ML 1,000 ML IV SCH (03:58)
[2022-08-19 05:01] VITALS: BP 135/62; TEMP 97.9; O2SAT 98
[2022-08-19] MEDS: FUROSEMIDE 100MG/10ML VIAL IV SCH (05:05)
[2022-08-19] MEDS: LEVOTHYROXINE 50MCG TABLET (0.05MG) PO SCH (05:05)
[2022-08-19] MEDS: SODIUM CHLORIDE 0.9% INJ 10 ML SYR IV SCH ×2 (05:10→14:01)
[2022-08-19 06:16] LABS: HEMATOCRIT 26.3 % (36.0-47.0); HEMOGLOBIN 8.3 g/dl (12.0-15.5); MEAN CORPUSCULAR HGB CONC 31.6 g/dl (32.0-36.5); MEAN CORPUSCULAR VOLUME 98.1 fl (80.0-96.0); RED BLOOD COUNT 2.68 10^6/uL (4.00-5.40); WHITE BLOOD COUNT 6.1 10^3/uL (4.0-10.0)
[2022-08-19 06:21] LABS: PLATELET COUNT, AUTOMATED 34 10^3/uL (150-450)
[2022-08-19 06:40] LABS: ALBUMIN 1.7 G/DL (3.2-5.2); ALKALINE PHOSPHATASE 85 U/L (46-116); ALT/SGPT < 9 U/L (7.0-40); AST/SGOT 18 U/L (<34); BILIRUBIN,TOTAL 1.9 MG/DL (0.3-1.2); BLOOD UREA NITROGEN 81 MG/DL (9-23); CALCIUM LEVEL 7.2 MG/DL (8.3-10.6); CARBON DIOXIDE LEVEL 25 MMOL/L (20-31); CHLORIDE LEVEL 114 MMOL/L (98-107); CREATININE FOR GFR 3.44 MG/DL (0.55-1.30); GLOMERULAR FILTRATION RATE 13.6 (>32); GLUCOSE, FASTING 167 MG/DL (74-106); POTASSIUM SERUM 4.3 MMOL/L (3.5-5.1); SODIUM LEVEL 146 MMOL/L (136-145); TOTAL PROTEIN 4.1 G/DL (5.7-8.2)
[2022-08-19] MEDS: INSULIN LISPRO (NovoLOG) PER UNIT SC SCH ×2 (07:30→12:00)
[2022-08-19] MEDS: PANTOPRAZOLE 40MG VIAL IV SCH (08:11)
[2022-08-19] MEDS: CLINDAMYCIN 150MG CAPSULE PO SCH ×2 (08:11→14:00)
[2022-08-19 08:12] VITALS: BP 135/62
[2022-08-19] MEDS: CARVedilol 3.125 MG TAB PO SCH (08:12)
[2022-08-19] MEDS ORDERED: CLIN-250 PO (10:11)
[2022-08-19] MEDS ORDERED: TORSEMIDE 20 MG TAB PO SCH (17:00)
== END 2022-08-19 15:30 | disposition home health service (06) | DRG 378 ==
LOC: M ED 19:01 → M ED INP 08-17 04:45 → M MS4PR 08-17 06:47 → M MS5PR 08-18 16:03
PROVIDERS: ADMIT Internal Medicine; ATTEND Family Medicine
PROC: 30233N1 Transfusion of Nonautologous Red Blood Cells into Peripheral Vein, Percutaneous Approach (ICD-10-PCS; principal; 2022-08-17)
PROC: B246ZZZ Ultrasonography of Right and Left Heart (ICD-10-PCS; 2022-08-18)
DX: K92.2 Gastrointestinal hemorrhage, unspecified (principal); L03.116 Cellulitis of left lower limb; D69.3 Immune thrombocytopenic purpura; N18.4 Chronic kidney disease, stage 4 (severe); I50.32 Chronic diastolic (congestive) heart failure; N17.9 Acute kidney failure, unspecified; I13.0 Hypertensive heart and chronic kidney disease with heart failure and stage 1 through stage 4 chronic kidney disease, or unspecified chronic kidney disease; C91.Z0 Other lymphoid leukemia not having achieved remission; D62 Acute posthemorrhagic anemia; K74.60 Unspecified cirrhosis of liver; K76.82 Hepatic encephalopathy; E11.22 Type 2 diabetes mellitus with diabetic chronic kidney disease; D50.9 Iron deficiency anemia, unspecified; E03.9 Hypothyroidism, unspecified; F41.9 Anxiety disorder, unspecified; F32.A Depression, unspecified; K21.9 Gastro-esophageal reflux disease without esophagitis; D63.1 Anemia in chronic kidney disease; D63.0 Anemia in neoplastic disease; E11.649 Type 2 diabetes mellitus with hypoglycemia without coma; Z86.73 Personal history of transient ischemic attack (TIA), and cerebral infarction without residual deficits; Z79.890 Hormone replacement therapy; Z79.4 Long term (current) use of insulin; Z79.899 Other long term (current) drug therapy

== ENCOUNTER 2022-09-04 11:31 | Inpatient (IN) | payer MEDICARE ==
[~2022-09-04] VITALS: Ht 147.3 cm; Wt 81.9 kg
[2022-09-04] VITALS (8 sets, daily range): BP systolic 116–147; BP diastolic 55–70; TEMP 96.4–98.3; O2SAT 97–100
[~2022-09-04 11:31] MED LIST changes: +CLIN-250 PO; +DOXY100T27 PO; +LACT10SO3 PO; +SODI650T PO; +SYNT50TA PO
[2022-09-04] MEDS ORDERED: PANTOPRAZOLE 40MG VIAL IV ONE (13:50)
[2022-09-04 13:58] LABS: BASO % 0.4 % (0.0-1.0); EOS # 0.5 10^3/uL (0.0-0.5); EOS % 5.1 % (0.0-3.0); HEMATOCRIT 21.7 % (36.0-47.0); LYMPH # 1.2 10^3/uL (1.5-5.0); MEAN CORPUSCULAR HEMOGLOBIN 32.5 pg (27.0-33.0); MEAN CORPUSCULAR HGB CONC 30.9 g/dl (32.0-36.5); MEAN CORPUSCULAR VOLUME 105.3 fl (80.0-96.0); MONO % 11.3 % (2.0-8.0); NEUTROPHILS # 6.3 10^3/uL (1.5-8.5); NEUTROPHILS % 69.5 % (36.0-66.0); RED BLOOD COUNT 2.06 10^6/uL (4.00-5.40); WHITE BLOOD COUNT 9.1 10^3/uL (4.0-10.0)
[2022-09-04 14:01] LABS: HEMOGLOBIN 6.7 g/dl (12.0-15.5); INR 1.52; PLATELET COUNT, AUTOMATED 69 10^3/uL (150-450); PROTHROMBIN TIME 18.6 SECONDS (12.5-14.5)
[2022-09-04 14:02] LABS: PARTIAL THROMBOPLASTIN TIME 47.1 SECONDS (24.8-34.2)
[2022-09-04 14:09] LABS: ALBUMIN 1.9 G/DL (3.2-5.2); BILIRUBIN,DIRECT 0.9 MG/DL (<0.4); BILIRUBIN,TOTAL 1.8 MG/DL (0.3-1.2); CALCIUM LEVEL 7.1 MG/DL (8.3-10.6); CREATININE FOR GFR 6.61 MG/DL (0.55-1.30); GLOMERULAR FILTRATION RATE 6.4 (>32); POTASSIUM SERUM 4.5 MMOL/L (3.5-5.1)
[2022-09-04 14:10] LABS: PERCENT SATURATION 38.6 % (13.2-45.0)
[2022-09-04] MEDS ORDERED: MED REC IN PROGRESS XX SCH (15:50)
[2022-09-04 16:00] LABS: RSV AMPLIFICATION NEGATIVE (NEGATIVE)
[2022-09-04] MEDS ORDERED: SUCRALFATE SUSP 1GM/10ML UD PO ONE (16:00)
[2022-09-04] MEDS ORDERED: BUME0.5T2 PO (16:23)
[2022-09-04] MEDS ORDERED: HOME MED LIST COMPLETE! XX SCH (16:25)
[2022-09-04 16:38] LABS: FERRITIN 83.4 NG/ML (7.3-270.7)
[2022-09-04] MEDS ORDERED: GLUCAGON INJ 1MG VIAL SC PRN (17:20)
[2022-09-04] MEDS ORDERED: DEXTROSE 50% 50ML SYRINGE IV PRN (17:20)
[2022-09-04] MEDS ORDERED: NS 1,000 ML IV SCH (17:20)
[2022-09-04] MEDS ORDERED: GLUCOSE 4GM CHEW TABLET PO PRN (17:20)
[2022-09-04] MEDS: INSULIN LISPRO (NovoLOG) PER UNIT SC SCH (18:10)
[2022-09-04] MEDS: ESCITALOPRAM OXALATE 10 MG TAB (LEXAPRO) PO SCH (18:52)
[2022-09-04] MEDS ORDERED: LEVEMIR (INSULIN DETEMIR) 1 UNITS/0.01ML SC SCH (21:00)
[2022-09-04] MEDS ORDERED: SODIUM BICARBONATE 325 MG TAB PO SCH (21:00)
[2022-09-04] MEDS ORDERED: INSULIN LISPRO (NovoLOG) PER UNIT SC SCH (21:00)
[2022-09-04] MEDS: CARVedilol 3.125 MG TAB PO SCH (21:21)
[2022-09-04] MEDS: SUCRALFATE SUSP 1GM/10ML UD PO SCH (21:21)
[2022-09-04] MEDS: FERROUS GLUCONATE 324 MG TAB PO SCH (21:21)
[2022-09-05] MEDS ORDERED: FUROSEMIDE injection 250 MG in D5W 225 ML IV SCH ×2
[2022-09-05] MEDS ORDERED: ONDANSETRON 4MG ORAL DISINTEGRATING TAB SL PRN (00:35)
[2022-09-05 02:23] LABS: HEMATOCRIT 29.2 % (36.0-47.0)
[2022-09-05 02:27] LABS: HEMOGLOBIN 9.2 g/dl (12.0-15.5)
[2022-09-05] MEDS ORDERED: PANTOPRAZOLE 40MG VIAL IV SCH (03:00)
[2022-09-05 03:29] VITALS: BP 110/62; TEMP 97.2; O2SAT 96
[2022-09-05] MEDS: LEVOTHYROXINE 50MCG TABLET (0.05MG) PO SCH (05:07)
[2022-09-05 05:10] LABS: HEMATOCRIT 26.1 % (36.0-47.0); HEMOGLOBIN 8.4 g/dl (12.0-15.5); MEAN CORPUSCULAR HEMOGLOBIN 32.6 pg (27.0-33.0); MEAN CORPUSCULAR HGB CONC 32.2 g/dl (32.0-36.5); MEAN CORPUSCULAR VOLUME 101.2 fl (80.0-96.0); RED BLOOD COUNT 2.58 10^6/uL (4.00-5.40); WHITE BLOOD COUNT 10.3 10^3/uL (4.0-10.0)
[2022-09-05 05:11] LABS: PLATELET COUNT, AUTOMATED 56 10^3/uL (150-450)
[2022-09-05 05:42] LABS: CALCIUM LEVEL 7.3 MG/DL (8.3-10.6); CREATININE FOR GFR 6.69 MG/DL (0.55-1.30); GLOMERULAR FILTRATION RATE 6.3 (>32); POTASSIUM SERUM 4.8 MMOL/L (3.5-5.1)
[2022-09-05 07:30] VITALS: TEMP 98.2; O2SAT 95
[2022-09-05] MEDS: INSULIN LISPRO (NovoLOG) PER UNIT SC SCH ×2 (07:30→11:43)
[2022-09-05 08:20] VITALS: BP 119/56
[2022-09-05] MEDS: FERROUS GLUCONATE 324 MG TAB PO SCH (08:20)
[2022-09-05] MEDS: ESCITALOPRAM OXALATE 10 MG TAB (LEXAPRO) PO SCH (08:20)
[2022-09-05] MEDS: SUCRALFATE SUSP 1GM/10ML UD PO SCH ×4 (08:20→21:00)
[2022-09-05] MEDS: CARVedilol 3.125 MG TAB PO SCH ×2 (08:21→21:00)
[2022-09-05 10:50] VITALS: TEMP 98
[2022-09-05] MEDS ORDERED: LIDOCAINE 2% 100MG/5ML SDV (FOR ANES.) As Ordered ONE (11:35)
[2022-09-05] MEDS ORDERED: propofoL 200 MG/20 ML VIAL As Ordered ONE (11:35)
[2022-09-05 11:50] VITALS: BP 98/51; O2SAT 96
[2022-09-05] MEDS ORDERED: LORazepam 1 MG TAB PO PRN (12:10)
[2022-09-05] MEDS ORDERED: HYOSCYAMINE SULFATE 0.125 MG SUBL TABLET PO PRN (12:10)
[2022-09-05] MEDS ORDERED: ATROPINE SULFATE 1% OPHTH SOLN 2ML BTL SL PRN (12:10)
[2022-09-05] MEDS ORDERED: BISACODYL 10MG SUPP PR PRN (12:10)
[2022-09-05] MEDS ORDERED: MORPHINE 10MG/0.5ML ORAL CONCENTRATE SOLUTION U/D SL PRN (12:10)
[2022-09-05] MEDS ORDERED: SCOPOLAMINE 1MG TRANSDERMAL PATCH TOP PRN (12:10)
[2022-09-05 13:43] LABS: SOURCE, BODY FLUID ALBUMIN ASCITES
[2022-09-05 13:48] LABS: SOURCE, BODY FLUID GLUCOSE ASCITES
[2022-09-05 13:50] LABS: SOURCE, BODY FLUID TOT PROTEIN ASCITES; TOTAL PROTEIN, BODY FLUID < 2.0 G/DL (NOT ESTABLISHED)
[2022-09-05 14:05] LABS: APPEARANCE, BODY FLUID HAZY (CLEAR); ASCITES FL COLOR PALE YELLOW (COLORLESS); SOURCE, BODY FLUID ASCITES
[2022-09-06] MEDS: LEVOTHYROXINE 50MCG TABLET (0.05MG) PO SCH (05:58)
[2022-09-06] MEDS: SUCRALFATE SUSP 1GM/10ML UD PO SCH ×4 (07:30→19:58)
[2022-09-06] MEDS: ESCITALOPRAM OXALATE 10 MG TAB (LEXAPRO) PO SCH (09:00)
[2022-09-06] MEDS: CARVedilol 3.125 MG TAB PO SCH ×2 (09:00→19:58)
[2022-09-06] MEDS: ACETAMINOPHEN TAB 650MG DOSE (2X325MG) PO PRN (20:03)
[2022-09-07] MEDS: LEVOTHYROXINE 50MCG TABLET (0.05MG) PO SCH (05:42)
[2022-09-07] MEDS: SUCRALFATE SUSP 1GM/10ML UD PO SCH ×4 (09:12→21:59)
[2022-09-07] MEDS: CARVedilol 3.125 MG TAB PO SCH ×2 (10:19→22:00)
[2022-09-07] MEDS: ESCITALOPRAM OXALATE 10 MG TAB (LEXAPRO) PO SCH (10:29)
[2022-09-07 14:12] LABS: BASO % 0.4 % (0.0-1.0); EOS # 0.4 10^3/uL (0.0-0.5); HEMATOCRIT 24.9 % (36.0-47.0); HEMOGLOBIN 7.8 g/dl (12.0-15.5); LYMPH # 1.1 10^3/uL (1.5-5.0); LYMPH % 12.1 % (24.0-44.0); MEAN CORPUSCULAR HEMOGLOBIN 32.6 pg (27.0-33.0); MEAN CORPUSCULAR HGB CONC 31.3 g/dl (32.0-36.5); MEAN CORPUSCULAR VOLUME 104.2 fl (80.0-96.0); MONO # 0.9 10^3/uL (0.0-0.8); NEUTROPHILS % 74.2 % (36.0-66.0); RED BLOOD COUNT 2.39 10^6/uL (4.00-5.40); WHITE BLOOD COUNT 9.4 10^3/uL (4.0-10.0)
[2022-09-07 14:16] LABS: PLATELET COUNT, AUTOMATED 58 10^3/uL (150-450)
[2022-09-07 14:47] LABS: ALBUMIN 1.5 G/DL (3.2-5.2); BILIRUBIN,TOTAL 1.6 MG/DL (0.3-1.2); CREATININE FOR GFR 7.83 MG/DL (0.55-1.30); GLOMERULAR FILTRATION RATE 5.3 (>32); POTASSIUM SERUM 4.4 MMOL/L (3.5-5.1); TOTAL PROTEIN 4.3 G/DL (5.7-8.2)
[2022-09-07 22:00] VITALS: BP 88/48
[2022-09-07] MEDS: ACETAMINOPHEN TAB 650MG DOSE (2X325MG) PO PRN (22:00)
[2022-09-08] MEDS: LEVOTHYROXINE 50MCG TABLET (0.05MG) PO SCH (05:48)
[2022-09-08] MEDS: SUCRALFATE SUSP 1GM/10ML UD PO SCH ×4 (07:30→21:02)
[2022-09-08] MEDS: CARVedilol 3.125 MG TAB PO SCH (09:00)
[2022-09-08] MEDS: ESCITALOPRAM OXALATE 10 MG TAB (LEXAPRO) PO SCH (09:00)
[2022-09-09] MEDS: LEVOTHYROXINE 50MCG TABLET (0.05MG) PO SCH (06:00)
[2022-09-09] MEDS ORDERED: MORP1SOL5 PO (07:28)
[2022-09-09] MEDS ORDERED: ATIV1TAB10 PO (07:28)
[2022-09-09] MEDS ORDERED: HYOS125TA PO (07:28)
[2022-09-09] MEDS: ESCITALOPRAM OXALATE 10 MG TAB (LEXAPRO) PO SCH (08:25)
== END 2022-09-09 10:39 | disposition hospice, inpatient (51) | DRG 682 ==
LOC: M ED 11:31 → EDBD 11:31 → M ED INP 15:25 → M PCU 18:30 → M MSPAV 09-05 15:53
PROVIDERS: ADMIT General Practice; ATTEND Internal Medicine Nephrology
PROC: 30233N1 Transfusion of Nonautologous Red Blood Cells into Peripheral Vein, Percutaneous Approach (ICD-10-PCS; 2022-09-04)
PROC: 0W9G3ZX Drainage of Peritoneal Cavity, Percutaneous Approach, Diagnostic (ICD-10-PCS; principal; 2022-09-05 16:00)
DX: N17.9 Acute kidney failure, unspecified (principal); G93.41 Metabolic encephalopathy; C91.90 Lymphoid leukemia, unspecified not having achieved remission; R18.8 Other ascites; I13.0 Hypertensive heart and chronic kidney disease with heart failure and stage 1 through stage 4 chronic kidney disease, or unspecified chronic kidney disease; K92.2 Gastrointestinal hemorrhage, unspecified; I50.32 Chronic diastolic (congestive) heart failure; N18.4 Chronic kidney disease, stage 4 (severe); N25.81 Secondary hyperparathyroidism of renal origin; D50.0 Iron deficiency anemia secondary to blood loss (chronic); D63.1 Anemia in chronic kidney disease; I35.0 Nonrheumatic aortic (valve) stenosis; Z51.5 Encounter for palliative care; Z66 Do not resuscitate; K74.60 Unspecified cirrhosis of liver; I12.9 Hypertensive chronic kidney disease with stage 1 through stage 4 chronic kidney disease, or unspecified chronic kidney disease; I27.20 Pulmonary hypertension, unspecified; E55.9 Vitamin D deficiency, unspecified; K75.81 Nonalcoholic steatohepatitis (NASH); D35.02 Benign neoplasm of left adrenal gland; F41.9 Anxiety disorder, unspecified; H90.3 Sensorineural hearing loss, bilateral; E11.40 Type 2 diabetes mellitus with diabetic neuropathy, unspecified; E11.22 Type 2 diabetes mellitus with diabetic chronic kidney disease; D75.82 Heparin induced thrombocytopenia (HIT); R42 Dizziness and giddiness; D63.0 Anemia in neoplastic disease; E87.5 Hyperkalemia; Z86.73 Personal history of transient ischemic attack (TIA), and cerebral infarction without residual deficits; Z79.4 Long term (current) use of insulin; Z79.899 Other long term (current) drug therapy; Z88.0 Allergy status to penicillin; Z88.1 Allergy status to other antibiotic agents; Z88.2 Allergy status to sulfonamides; Z86.010 Personal history of colon polyps